=== PATIENT | male | born 1940 | race Native Hawaiian/Other Pacific Islander ===

== ENCOUNTER 2017-11-25 14:14 | Inpatient (IN) | payer MEDICARE, BC ==
[2017-11-25 14:31] VITALS: BMI 26.6
--- NOTE | 2017-11-25 15:00 | C.PDOC ---
History Of Present Illness 77 year old male, whose PMHx includes CABG (two vessels) is brought to the ED by ambulance for evaluation of shortness of breath which has been ongoing for around 2 months. Patient reports shortness of breath with exertional activities such as walking, and states symptoms are relieved when he is resting or laying down. Patient denies fever, chills, cough, and abdominal pain. Patient states he quit smoking around 20 years ago. Time Seen by Provider: 11/25/17 14:38 Chief Complaint (Nursing): Shortness Of Breath History Per: Patient History/Exam Limitations: no limitations Onset/Duration Of Symptoms: Other (2 months ) Initiating Event: Other (exertion ) Quality: denies: "Pain" Exacerbating Factor(s): Exertion. denies: Coughing Current Respiratory Medications: See Home Med List Associated Symptoms: denies: Fever, Chills, Bloody Cough, Productive Cough Additional History Per: Patient Past Medical History Reviewed: Historical Data, Nursing Documentation, Vital Signs Vital Signs: Last Vital Signs Temp Pulse 83 11/25/17 14:33 Resp 16 11/25/17 14:33 BP 120/53 L 11/25/17 14:33 Pulse Ox 97 11/25/17 15:07 - Medical History PMH: Anemia, Atrial Fibrillation, CAD (s/p stents , early , & 03/2016) , CHF, COPD, HTN, Chronic Kidney Disease Denies: HIV Surgical History: CABG, Coronary Stent (s/p stents , early , & 03/2016 ), Pacemaker - [facility] (04/17/17) EXCISION OF TOE NAIL, EXTERNAL APPROACH (04/17/17) EXERCISE TREATMENT OF MUSCULOSK WHOLE USING ASSIST EQUIPMENT (04/17/17) HOME MANAGEMENT TREATMENT USING ASSIST EQUIPMENT (04/17/17) Family History: States: Unknown Family Hx - Social History Hx Alcohol Use: Yes (In the 1970s) Hx Substance Use: No - Immunization History Hx Tetanus Toxoid Vaccination: No Hx Influenza Vaccination: Yes Hx Pneumococcal Vaccination: Yes Review Of Systems Constitutional: Negative for: Fever, Chills Respiratory: Positive for: SOB with Excertion. Negative for: Cough Gastrointestinal: Negative for: Abdominal Pain Physical Exam - Physical Exam Appears: Non-toxic, No Acute Distress Skin: Normal Color, Warm, Dry Head: Atraumatic, Normacephalic Eye(s): bilateral: Normal Inspection Oral Mucosa: Moist Neck: Supple Chest: Symmetrical, No Deformity, No Tenderness Cardiovascular: Rhythm Regular, No Murmur Respiratory: Rales (at right base ), No Rhonchi, No Wheezing Gastrointestinal/Abdominal: Soft, No Tenderness, No Guarding, No Rebound Extremity: Normal ROM, Capillary Refill (less than 2 seconds ), Other (+1 pitting edema to bilateral lower extremities ) Pulses: Left Dorsalis Pedis: Normal, Right Dorsalis Pedis: Normal Neurological/Psych: Oriented x3, Normal Speech, Normal Cognition ED Course And Treatment - Laboratory Results Result Diagrams: 11/25/17 15:29 11/25/17 15:29 ECG: Interpreted By Me, Viewed By Me ECG Rhythm: AV Paced Rate From EC O2 Sat by Pulse Oximetry: 97 Medical Decision Making Medical Decision Making: Assessment: shortness of breath with exertion Plan: * bloodwork * urinalysis * CXR * EKG * reassess and disposition Progress: Bloodwork, urinalysis, CXR and EKG ordered and reviewed. Disposition Discussed With : Angelia Lau Doctor Will See Patient In The: Hospital Counseled Patient/Family Regarding: Studies Performed, Diagnosis - Disposition Disposition: HOSPITALIZED Disposition Time: 16:30 Condition: FAIR Forms: [facility] (Croatian) - Clinical Impression Clinical Impression: Chronic congestive heart failure, SOB (shortness of breath) - Scribe Statement The provider has reviewed the documentation as recorded by the Scribe (Kathy Hernandez) Provider Attestation: All medical record entries made by the Scribe were at my direction and personally dictated by me. I have reviewed the chart and agree that the record accurately reflects my personal performance of the history, physical exam, medical decision making, and the department course for this patient. I have also personally directed, reviewed, and agree with the discharge instructions and disposition.
[2017-11-25 15:33] LABS: MEAN CORPUSCULAR HEMOGLOBIN 28.5 pg (27.0-31.0); MONO # 0.6 K/uL (0.0-0.8); NEUT # 3.5 K/uL (1.8-7.0); RED CELL DISTRIBUTION WIDTH 19.5 % (11.5-14.5)
[2017-11-25 15:37] LABS: BASO % 0.9 % (0.0-2.0); EOS # 0.2 K/uL (0.0-0.7); EOS % 2.9 % (0.0-4.0); HEMOGLOBIN 10.7 g/dL (12.0-18.0); LYMPH # 1.1 K/uL (1.0-4.3); MEAN CELL VOLUME 85.9 fL (80.0-94.0); MEAN CORPUSCULAR HGB CONC 33.2 g/dL (33.0-37.0); MEAN PLATELET VOLUME 8.3 fL (7.2-11.7); MONO % 10.7 % (0.0-10.0); NEUT % 65.5 % (50.0-75.0); NRBC % 0.1 % (0.0-2.0); RBC 3.75 Mil/uL (4.40-5.90); WHITE BLOOD COUNT 5.4 K/uL (4.8-10.8)
[2017-11-25 15:51] LABS: ALB/GLOB RATIO 1.2 (1.0-2.1); ALBUMIN 4.1 g/dL (3.5-5.0); CALCIUM 9.6 mg/dl (8.6-10.4)
[2017-11-25 16:03] LABS: TROPONIN I 0.103 ng/mL (0.00-0.120)
--- NOTE | 2017-11-25 16:14 | RAD ---
Date of service: 11/25/2017 PROCEDURE: CHEST RADIOGRAPH, 1 VIEW HISTORY: SOB COMPARISON: 03/13/2011 FINDINGS: LUNGS: No consolidation. . Interval discoid atelectasis - left lateral mid lung zone. PLEURA: No pneumothorax or pleural fluid seen. CARDIOVASCULAR: Cardiomegaly increased since prior study. Interval increased pulmonary venous congestion all midline sternotomy and coronary artery bypass surgery. Atherosclerotic vascular calcifications present. . Duallead pacemaker in place both change. OSSEOUS STRUCTURES: Interval midline sternotomy. Thoracic spondylosis. Bilateral shoulder arthrosis VISUALIZED UPPER ABDOMEN: Normal. OTHER FINDINGS: None. IMPRESSION: Interval increased cardiomegaly. Interval increased pulmonary venous congestion. Interval left lateral discoid atelectasis Interval cardiac postsurgical changes
[2017-11-25 16:35] LABS: INR 1.3; PROTHROMBIN TIME 14.1 SECONDS (9.7-12.2)
--- NOTE | 2017-11-25 19:07 | CP.PCM.HP ---
History of Present Illness - History of Present Illness History of Present Illness: Admitted this 77 years old male because of increasing shortness of breath. He is a known case of CAD had a bypass surgery in March 2017, went into congestive heart failure and atrial fibrillation for which he underwent ablation. Patient had been on HD for 6 years and Had NIDDM for about 20 years.He has HD 3x a week and just had dialysis yesterday. patient also claims he fell and hit his back for which he has a lot of pain but no evidence of fracture. Present on Admission - Present on Admission Any Indicators Present on Admission: No Review of Systems - Constitutional Constitutional: Weakness - Cardiovascular Cardiovascular: As Per HPI, Dyspnea, Dyspnea on Exertion - Respiratory Respiratory: Dyspnea, Dyspnea on Exertion - Musculoskeletal Musculoskeletal: Back Pain Past Patient History - Past Medical History & Family History Past Medical History?: Yes - Past Social History Smoking Status: Never Smoked Chewing Tobacco Use: No Cigar Use: No Drugs: Denies - CARDIAC Hx Cardiac Disorders: Yes Hx Atrial Fibrillation: Yes Hx Congestive Heart Failure: Yes Hx Hypertension: Yes Hx Pacemaker: Yes - PULMONARY Hx Respiratory Disorders: Yes Hx Chronic Obstructive Pulmonary Disease (COPD): Yes - NEUROLOGICAL Hx Neurological Disorder: No - HEENT Hx HEENT Problems: No - RENAL Hx Chronic Kidney Disease: Yes Hx Dialysis: Yes Date of Last Dialysis Treatment: 11/25/17 Hx Renal Failure: Yes - ENDOCRINE/METABOLIC Hx Endocrine Disorders: Yes Hx Diabetes Mellitus Type 1: Yes (??) - HEMATOLOGICAL/ONCOLOGICAL Hx Anemia: Yes Hx Human Immunodeficiency Virus (HIV): No - INTEGUMENTARY Hx Dermatological Problems: No - MUSCULOSKELETAL/RHEUMATOLOGICAL Hx Musculoskeletal Disorders: No - GENITOURINARY/GYNECOLOGICAL Hx Genitourinary Disorders: No - PSYCHIATRIC Hx Psychophysiologic Disorder: No Hx Substance Use: No - SURGICAL HISTORY Hx Cardiac Catheterization: Yes Hx Coronary Artery Bypass Graft: Yes Hx Coronary Stent: Yes (s/p stents 's, early 1999', & 03/2016) Hx Open Heart Surgery: Yes - ANESTHESIA Hx Anesthesia: Yes Hx Anesthesia Reactions: No Meds Allergies/Adverse Reactions: Allergies Allergy/AdvReac Type Severity Reaction Status Date / Time aspirin Allergy Intermediate .HIVES Verified 11/25/17 14:29 Physical Exam - Constitutional Appears: Well, Chronically Ill - Head Exam Head Exam: ATRAUMATIC, NORMAL INSPECTION, NORMOCEPHALIC - Eye Exam Eye Exam: Normal appearance Pupil Exam: PERRL - ENT Exam ENT Exam: Mucous Membranes Moist, Normal Exam - Neck Exam Neck exam: Positive for: Full Rom, Normal Inspection - Respiratory Exam Respiratory Exam: Rales, Rhonchi - Cardiovascular Exam Cardiovascular Exam: REGULAR RHYTHM, +S1, +S2 - GI/Abdominal Exam GI & Abdominal Exam: Soft - Rectal Exam Rectal Exam: Deferred - Extremities Exam Extremities exam: Positive for: full ROM, normal inspection - Back Exam Back exam: tenderness - Neurological Exam Neurological exam: Alert, Oriented x3, Reflexes Normal - Psychiatric Exam Psychiatric exam: Normal Affect, Normal Mood - Skin Skin Exam: Dry, Intact, Warm Results - Vital Signs Recent Vital Signs: Last Vital Signs Temp 98.5 F 11/25/17 17:17 Pulse 80 11/25/17 17:17 Resp 17 11/25/17 17:17 BP 107/50 L 11/25/17 17:17 Pulse Ox 99 11/25/17 17:17 - Labs Result Diagrams: 11/25/17 15:29 11/25/17 15:29 Labs: Laboratory Results - last 24 hr 11/25/17 11/25/17 11/25/17 15:29 15:29 16:20 WBC 5.4 RBC 3.75 L Hgb 10.7 L Hct 32.2 L MCV 85.9 MCH 28.5 MCHC 33.2 RDW 19.5 H Plt Count 79 L MPV 8.3 Neut % (Auto) 65.5 Lymph % (Auto) 20.0 [place] % (Auto) 10.7 H Eos % (Auto) 2.9 Baso % (Auto) 0.9 Neut # (Auto) 3.5 Lymph # (Auto) 1.1 [place] # (Auto) 0.6 Eos # (Auto) 0.2 Baso # (Auto) 0.0 Differential Comment PT 14.1 H INR 1.3 APTT 39 H D-Dimer, Quantitative 225 Sodium 139 Potassium 6.1 H Chloride 95 L Carbon Dioxide 25 Anion Gap 25 H BUN 51 H Creatinine 6.7 H Est GFR ( Amer) 10 Est GFR (Non-Af Amer) 8 Random Glucose 170 H Calcium 9.6 Total Bilirubin 1.1 AST 46 ALT 42 Alkaline Phosphatase 96 Troponin I 0.1030 NT-Pro-B Natriuret Pep 09407 H Total Protein 7.5 Albumin 4.1 Globulin 3.3 Albumin/Globulin Ratio 1.2 Assessment & Plan (1) Anemia in ESRD (end-stage renal disease) Status: Chronic (2) Hypertensive CKD, ESRD on dialysis Status: Chronic (3) IDDM (insulin dependent diabetes mellitus) Status: Chronic (4) Chronic congestive heart failure Status: Chronic (5) SOB (shortness of breath) Status: Chronic (6) S/P CABG (coronary artery bypass graft) Status: Chronic - Assessment and Plan (Free Text) Assessment: Assessment: ESRD. CAD HTN. Anemia sec. to REnal failure IDDM back pains sec to a fall. Plan: Plan : For HD tonight. Continue al medications. Novolog coverage. - Date & Time Date: 11/25/17 Time: 19:15
--- NOTE | 2017-11-25 20:38 | CARD ---
APPROVED REPORT Date of service: 11/25/2017 EKG Measurement Heart [id number] <Conclusion> AV dual-paced rhythm with prolonged AV conduction Abnormal ECG
[2017-11-25] MEDS: (Novolog) Insulin Aspart, Recombinant 100 u/ml 10 ml vial SC SCH (21:02)
--- NOTE | 2017-11-26 08:10 | RAD ---
Date of service: 11/25/2017 PROCEDURE: Radiographs of the Lumbar Spine. HISTORY: patient fell COMPARISON: No prior. FINDINGS: BONES: Mildly straightened curvature. No fracture identified. There is a borderline retrolisthesis at L4-5 with L4 borderline posterior L5. Prominent osteophytes limit the evaluation somewhat. CT or MRI may be utilized for greater characterization. Gross multilevel lumbar spondylosis identified. DISC SPACES: Marked disc height loss seen at L3-4 indicative of degenerative disease with additional degenerative disc disease otherwise appreciated on a diffuse basis, primarily endplate sclerosis and osteophyte development. OTHER FINDINGS: Extensive aortic atherosclerotic calcification is identified incidentally. IMPRESSION: Borderline spondylolisthesis L4-5. Advanced multilevel degenerative disease, seen worst at L3-4.
[2017-11-26] MEDS: (Novolog) Insulin Aspart, Recombinant 100 u/ml 10 ml vial SC SCH ×2 (08:27→21:48)
[2017-11-26] MEDS: Pantoprazole 40 mg EC Tab PO SCH (10:14)
--- NOTE | 2017-11-26 11:08 | CP.PCM.PN ---
Subjective - Date & Time of Evaluation Date of Evaluation: 11/26/17 Time of Evaluation: 11:04 - Subjective Subjective: Patient had HD late last night. Started on PT, but has to b discontinued because the patient desaturated to 70%. is very dypsneic Lungs rales sre very minimal. Much lesser than last night. Lab results showed a K of 6.1 last night. Will repeat stat. Echo ordered. Objective - Vital Signs/Intake and Output Vital Signs (last 24 hours): Temp Pulse Resp BP Pulse Ox 97.8 F 81 20 118/69 97 11/26/17 03:20 11/26/17 04:49 11/26/17 03:20 11/26/17 10:16 11/26/17 08:01 Intake and Output: 11/26/17 11/26/17 06:59 18:59 Intake Total 120 Balance 120 - Medications Medications: Current Medications Amlodipine Besylate (Norvasc) 10 mg PO DAILY [facility] Last Admin: 11/26/17 10:19 Dose: 10 mg Apixaban (Eliquis) 5 mg PO BID [facility] Last Admin: 11/26/17 10:15 Dose: 5 mg Calcium Acetate (Phoslo) 667 mg PO BID [facility] Last Admin: 11/26/17 10:14 Dose: 667 mg Clopidogrel Bisulfate (Plavix) 75 mg PO DAILY [facility] Last Admin: 11/26/17 10:19 Dose: 75 mg Docusate Sodium (Colace) 100 mg PO BID [facility] Last Admin: 11/26/17 10:14 Dose: 100 mg Home Med (Atorvastatin [Lipitor]) 40 mg PO HS [facility] Insulin Aspart (Novolog) 0 unit SC ACS [facility] PRN Reason: Protocol Last Admin: 11/26/17 08:27 Dose: 2 u Metoprolol Tartrate (Lopressor) 25 mg PO BID [facility] Last Admin: 11/26/17 10:16 Dose: 25 mg Mirtazapine (Remeron) 7.5 mg PO HS [facility] Oxandrolone (Oxandrin) 5 mg PO BID [facility] Last Admin: 11/25/17 19:36 Dose: Not Given Pantoprazole Sodium (Protonix Ec Tab) 40 mg PO DAILY [facility] Last Admin: 11/26/17 10:14 Dose: 40 mg Sevelamer Carbonate (Renvela) 2,400 mg PO TID [facility] Last Admin: 11/26/17 10:19 Dose: 2,400 mg - Labs Labs: 11/25/17 15:29 11/25/17 15:29 PT 14.1 SECONDS (9.7-12.2) H 11/25/17 16:20 INR 1.3 11/25/17 16:20 APTT 39 SECONDS (21-34) H 11/25/17 16:20 - Constitutional Appears: In Acute Distress, Chronically Ill - Head Exam Head Exam: ATRAUMATIC, NORMAL INSPECTION, NORMOCEPHALIC - Eye Exam Eye Exam: Normal appearance Pupil Exam: PERRL - ENT Exam ENT Exam: Mucous Membranes Moist, Normal Exam - Neck Exam Neck Exam: Full ROM - Respiratory Exam Respiratory Exam: Respiratory Distress Additional comments: Lesser rales. - Cardiovascular Exam Cardiovascular Exam: REGULAR RHYTHM, +S1, +S2 - GI/Abdominal Exam GI & Abdominal Exam: Soft, Normal Bowel Sounds - Rectal Exam Rectal Exam: Deferred - Back Exam Back Exam: NORMAL INSPECTION - Neurological Exam Neurological Exam: Alert, Awake, Oriented x3 - Psychiatric Exam Psychiatric exam: Depressed, Normal Affect - Skin Skin Exam: Intact Assessment and Plan (1) Anemia in ESRD (end-stage renal disease) Status: Chronic (2) Hypertensive CKD, ESRD on dialysis Status: Chronic (3) IDDM (insulin dependent diabetes mellitus) Status: Chronic (4) Chronic congestive heart failure Status: Chronic (5) SOB (shortness of breath) Status: Chronic (6) S/P CABG (coronary artery bypass graft) Status: Chronic - Assessment and Plan (Free Text) Assessment: Assessment: CAD, CHF S/P Cabg ESRD. IDDM. HTN. Plan: Plan: Continue HD. Continue Eliquis, Plavix, , Novolog coverage, Renvela, Metoprolol. ECHO Cardiology consult.
[2017-11-26 14:32] LABS: ALB/GLOB RATIO 1.3 (1.0-2.1); ALBUMIN 4.2 g/dL (3.5-5.0); CALCIUM 10.1 mg/dl (8.6-10.4)
[2017-11-26] MEDS ORDERED: Albumin Human 25% (12.5 gm/50 ml) IV ONE (15:49)
[2017-11-26] MEDS: Albumin Human 25% (12.5 gm/50 ml) IV ONE ×2 (16:48→19:50)
--- NOTE | 2017-11-26 18:45 | CP.PCM.CON ---
History of Present Illness - History of Present Illness History of Present Illness: pt is seen and examinedd, full consult is dictated, #[id number] s/p hd yesterday and today, had a uf 4500 ml Past Patient History - Past Medical History & Family History Past Medical History?: Yes - Past Social History Smoking Status: Never Smoked Chewing Tobacco Use: No Cigar Use: No Drugs: Denies - CARDIAC Hx Cardiac Disorders: Yes Hx Congestive Heart Failure: Yes Hx Hypertension: Yes - PULMONARY Hx Chronic Obstructive Pulmonary Disease (COPD): Yes - NEUROLOGICAL Hx Neurological Disorder: No - HEENT Hx HEENT Problems: No - RENAL Hx Chronic Kidney Disease: Yes - ENDOCRINE/METABOLIC Hx Diabetes Mellitus Type 2: Yes - HEMATOLOGICAL/ONCOLOGICAL Hx Anemia: Yes Hx Human Immunodeficiency Virus (HIV): No - INTEGUMENTARY Hx Dermatological Problems: No - MUSCULOSKELETAL/RHEUMATOLOGICAL Hx Falls: Yes - GENITOURINARY/GYNECOLOGICAL Hx Genitourinary Disorders: No - PSYCHIATRIC Hx Substance Use: No - SURGICAL HISTORY Hx Coronary Artery Bypass Graft: Yes Hx Coronary Stent: Yes (s/p stents , early , & 03/2016) - ANESTHESIA Hx Anesthesia: Yes Hx Anesthesia Reactions: No Meds Allergies/Adverse Reactions: Allergies Allergy/AdvReac Type Severity Reaction Status Date / Time aspirin Allergy Intermediate .HIVES Verified 11/25/17 14:29 - Medications Medications: Current Medications Amlodipine Besylate (Norvasc) 10 mg PO DAILY [facility] Last Admin: 11/26/17 10:19 Dose: 10 mg Apixaban (Eliquis) 5 mg PO BID [facility] Last Admin: 11/26/17 10:15 Dose: 5 mg Calcium Acetate (Phoslo) 667 mg PO BID [facility] Last Admin: 11/26/17 10:14 Dose: 667 mg Clopidogrel Bisulfate (Plavix) 75 mg PO DAILY [facility] Last Admin: 11/26/17 10:19 Dose: 75 mg Docusate Sodium (Colace) 100 mg PO BID [facility] Last Admin: 11/26/17 10:14 Dose: 100 mg Dronabinol (Marinol) 2.5 mg PO BID [facility] Insulin Aspart (Novolog) 0 unit SC [facility] PRN Reason: Protocol Last Admin: 11/26/17 08:27 Dose: 2 u Metoprolol Tartrate (Lopressor) 25 mg PO BID [facility] Last Admin: 11/26/17 10:16 Dose: 25 mg Mirtazapine (Remeron) 7.5 mg PO HS [facility] Pantoprazole Sodium (Protonix Ec Tab) 40 mg PO DAILY [facility] Last Admin: 11/26/17 10:14 Dose: 40 mg Rosuvastatin Calcium (Crestor) 10 mg PO HS [facility] Sevelamer Carbonate (Renvela) 2,400 mg PO TID [facility] Last Admin: 11/26/17 10:19 Dose: 2,400 mg Results - Vital Signs Recent Vital Signs: Last Vital Signs Temp 979 F H 11/26/17 15:00 Pulse 66 11/26/17 18:00 Resp 16 11/26/17 17:30 BP 116/60 11/26/17 17:30 Pulse Ox 98 11/26/17 18:23 - Labs Result Diagrams: 11/25/17 15:29 11/26/17 13:57 Labs: Laboratory Results - last 24 hr 11/26/17 11/26/17 11/26/17 00:35 06:05 11:12 Sodium Potassium Chloride Carbon Dioxide Anion Gap BUN Creatinine Est GFR ( Amer) Est GFR (Non-Af Amer) POC Glucose (mg/dL) 133 H 168 H 152 H Random Glucose Calcium Total Bilirubin AST ALT Alkaline Phosphatase Total Protein Albumin Globulin Albumin/Globulin Ratio 11/26/17 11/26/17 13:57 16:42 Sodium 140 Potassium 5.1 Chloride 94 L Carbon Dioxide 31 H Anion Gap 20 BUN 37 H Creatinine 5.7 H Est GFR ( Amer) 12 Est GFR (Non-Af Amer) 10 POC Glucose (mg/dL) 210 H Random Glucose 122 H Calcium 10.1 Total Bilirubin 1.0 AST 34 ALT 43 Alkaline Phosphatase 111 Total Protein 7.6 Albumin 4.2 Globulin 3.3 Albumin/Globulin Ratio 1.3
--- NOTE | 2017-11-26 20:09 | CARD ---
APPROVED REPORT Date of service: 11/26/2017 EXAM: Two-dimensional and M-mode echocardiogram with Doppler and color Doppler. Other Information Quality : AverageRhythm : NSR INDICATION Dyspnea Congestive Heart Failure Surgery/Intervention CABG: RISK FACTORS Hypertension Diabetes M-Mode DIMENSIONS RVDd2.10 (2.1-3.2cm)Left Atrium (MM)5.13 (2.5-4.0cm) IVSd1.36 (0.7-1.1cm)Aortic Root3.47 (2.2-3.7cm) LVDd5.68 (4.0-5.6cm)Aortic Cusp Exc.2.07 (1.5-2.0cm) PWd1.40 (0.7-1.1cm)FS (%) 21 % LVDs4.46 (2.0-3.8cm)LVEF (%)43 (>50%) Aortic Valve AoV Peak Vywddows333.8cm/Sriram Peak GR.5mmHg Mitral Valve MV E Qtgnshmd323.1cm/sMV A Rtioedcr95.5cm/sE/A ratio1.9 TDI E/Lateral E'0.0E/Medial E'0.0 Tricuspid Valve TR Peak [id number]/sTR Peak Gr.[id number] LEFT VENTRICLE The Left Ventricle is mildly dilated. There is mild to moderate concentric left ventricular hypertrophy. Left ventricle systolic function is moderately to severely impaired. The Ejection Fraction is 30-35%. There is akinesis in the mid-anterolateral wall. Transmitral Doppler flow pattern is Grade II-pseudonormal filling dynamics. There is no ventricular septal defect visualized. RIGHT VENTRICLE The right ventricle is normal size. The right ventricular systolic function is normal. There is a pacemaker lead in the right ventricle. ATRIA The left atrium is mildly dilated. The right atrium size is normal. AORTIC VALVE The aortic valve is mildly sclerotic. The aortic valve is tri-cuspid. There is trace aortic regurgitation. There is no aortic valvular stenosis. MITRAL VALVE Mitral annular calcification is mild. There is no evidence of mitral valve prolapse. Mitral regurgitation is mild to moderate. TRICUSPID VALVE The tricuspid valve is normal in structure. There is moderate to severe tricuspid regurgitation. Right ventricular systolic pressure is estimated at 30-40 mmHg. There is mild pulmonary hypertension. PULMONIC VALVE The pulmonic valve is not well visualized. There is trace pulmonic valvular regurgitation. GREAT VESSELS The aortic root is normal in size. The ascending aorta is normal in size. The IVC is normal in size and collapses >50% with inspiration. <Conclusion> Left ventricle systolic function is moderately to severely impaired. The Ejection Fraction is 30-35%. There is akinesis in the mid-anterolateral wall. Transmitral Doppler flow pattern is Grade II-pseudonormal filling dynamics. Mitral regurgitation is mild to moderate. There is mild pulmonary hypertension.
--- NOTE | 2017-11-27 01:03 | CP.PCM.CON ---
History of Present Illness - History of Present Illness History of Present Illness: 77 yo male complaining of increasing SOB for the past few weeks. Patient is known to have CAD, s/ CABG 8 months ago, s/p ablation for an atrial fibrillation , a Hx of IDDM, an ischemic cardiomyopathy, an atrial fibrillation, a s/p permanent pacemaker, a COPD, an ESRD on HD. He was found to be in an acue CHF, requirng more HD sessions. Review of Systems - Constitutional Constitutional: Weakness - Cardiovascular Cardiovascular: Dyspnea, Dyspnea on Exertion - Respiratory Respiratory: Dyspnea, Dyspnea on Exertion Past Patient History - Past Medical History & Family History Past Medical History?: Yes - Past Social History Smoking Status: Former Smoker Chewing Tobacco Use: No Cigar Use: No Drugs: Denies Home Situation {Lives}: With Family Domestic Violence: Negative - CARDIAC Hx Cardiac Disorders: Yes Hx Congestive Heart Failure: Yes Hx Hypertension: Yes - PULMONARY Hx Chronic Obstructive Pulmonary Disease (COPD): Yes - NEUROLOGICAL Hx Neurological Disorder: No - HEENT Hx HEENT Problems: No - RENAL Hx Chronic Kidney Disease: Yes Hx Dialysis: Yes - ENDOCRINE/METABOLIC Hx Diabetes Mellitus Type 2: Yes - HEMATOLOGICAL/ONCOLOGICAL Hx Anemia: Yes Hx Human Immunodeficiency Virus (HIV): No - INTEGUMENTARY Hx Dermatological Problems: No - MUSCULOSKELETAL/RHEUMATOLOGICAL Hx Falls: Yes - GENITOURINARY/GYNECOLOGICAL Hx Genitourinary Disorders: No - PSYCHIATRIC Hx Anxiety: Yes Hx Substance Use: No - SURGICAL HISTORY Hx Surgeries: Yes Hx Angioplasty: Yes Hx Arteriovenous Shunt: Yes Hx Cardiac Catheterization: Yes Hx Coronary Artery Bypass Graft: Yes Hx Coronary Stent: Yes (s/p stents ', early 1999', & 03/2016) - ANESTHESIA Hx Anesthesia: Yes Hx Anesthesia Reactions: No Meds Allergies/Adverse Reactions: Allergies Allergy/AdvReac Type Severity Reaction Status Date / Time aspirin Allergy Intermediate .HIVES Verified 11/25/17 14:29 - Medications Medications: Current Medications Amlodipine Besylate (Norvasc) 10 mg PO DAILY [facility] Last Admin: 11/26/17 10:19 Dose: 10 mg Apixaban (Eliquis) 5 mg PO BID [facility] Last Admin: 11/26/17 19:51 Dose: 5 mg Calcium Acetate (Phoslo) 667 mg PO BID [facility] Last Admin: 11/26/17 19:52 Dose: 667 mg Clopidogrel Bisulfate (Plavix) 75 mg PO DAILY [facility] Last Admin: 11/26/17 10:19 Dose: 75 mg Docusate Sodium (Colace) 100 mg PO BID [facility] Last Admin: 11/26/17 19:50 Dose: 100 mg Dronabinol (Marinol) 2.5 mg PO BID [facility] Last Admin: 11/26/17 19:51 Dose: 2.5 mg Insulin Aspart (Novolog) 0 unit SC [facility] PRN Reason: Protocol Last Admin: 11/26/17 21:48 Dose: Not Given Metoprolol Tartrate (Lopressor) 25 mg PO BID [facility] Last Admin: 11/26/17 18:00 Dose: 25 mg Mirtazapine (Remeron) 7.5 mg PO [facility] Last Admin: 11/26/17 21:47 Dose: 7.5 mg Pantoprazole Sodium (Protonix Ec Tab) 40 mg PO DAILY [facility] Last Admin: 11/26/17 10:14 Dose: 40 mg Rosuvastatin Calcium (Crestor) 10 mg PO [facility] Last Admin: 11/26/17 21:47 Dose: 10 mg Sevelamer Carbonate (Renvela) 2,400 mg PO TID [facility] Last Admin: 11/26/17 19:52 Dose: 2,400 mg Physical Exam - Constitutional Appears: No Acute Distress, Chronically Ill - Head Exam Head Exam: NORMAL INSPECTION - Eye Exam Eye Exam: Normal appearance - ENT Exam ENT Exam: Normal Exam - Neck Exam Neck exam: Positive for: Normal Inspection - Respiratory Exam Respiratory Exam: Rales - Cardiovascular Exam Cardiovascular Exam: REGULAR RHYTHM, Systolic Murmur - Rectal Exam Rectal Exam: Deferred - Extremities Exam Extremities exam: Positive for: normal inspection - Back Exam Back exam: NORMAL INSPECTION - Neurological Exam Neurological exam: Alert, Oriented x3 - Psychiatric Exam Psychiatric exam: Anxious - Skin Skin Exam: Dry, Intact, Normal Color Results - Vital Signs Recent Vital Signs: Last Vital Signs Temp 98.2 F 11/26/17 19:00 Pulse 80 11/26/17 19:00 Resp 20 11/26/17 19:00 BP 120/65 11/26/17 19:00 Pulse Ox 97 11/26/17 19:00 - Labs Result Diagrams: 11/25/17 15:29 11/26/17 13:57 Labs: Laboratory Results - last 24 hr 11/26/17 11/26/17 11/26/17 06:05 11:12 13:57 Sodium 140 Potassium 5.1 Chloride 94 L Carbon Dioxide 31 H Anion Gap 20 BUN 37 H Creatinine 5.7 H Est GFR ( Amer) 12 Est GFR (Non-Af Amer) 10 POC Glucose (mg/dL) 168 H 152 H Random Glucose 122 H Calcium 10.1 Total Bilirubin 1.0 AST 34 ALT 43 Alkaline Phosphatase 111 Total Protein 7.6 Albumin 4.2 Globulin 3.3 Albumin/Globulin Ratio 1.3 11/26/17 11/26/17 16:42 21:16 Sodium Potassium Chloride Carbon Dioxide Anion Gap BUN Creatinine Est GFR ( Amer) Est GFR (Non-Af Amer) POC Glucose (mg/dL) 210 H 192 H Random Glucose Calcium Total Bilirubin AST ALT Alkaline Phosphatase Total Protein Albumin Globulin Albumin/Globulin Ratio Assessment & Plan (1) Acute on chronic systolic (congestive) heart failure Status: Acute (2) ESRD (end stage renal disease) on dialysis Status: Chronic (3) Atrial fibrillation Status: Chronic
[2017-11-27] MEDS: (Novolog) Insulin Aspart, Recombinant 100 u/ml 10 ml vial SC SCH ×2 (07:57→21:17)
--- NOTE | 2017-11-27 08:49 | CON ---
DATE: 11/26/2017 The patient is located in 651, bed A. Requested by Dr. Angelia Lau. REASON FOR CONSULTATION: End-stage renal disease, shortness of breath, CHF, and hyperkalemia for emergency hemodialysis last night. HISTORY OF PRESENT ILLNESS: The patient is a 77-year-old elderly very pleasant [place] male with a past medical history significant for longstanding hypertension; diabetes; hyperlipidemia; coronary artery disease; status post CABG; end-stage renal disease, on hemodialysis three times a week, underwent CABG about six months ago, who was brought to the emergency room with sudden onset of shortness of breath. He was sleeping and he woke up with sudden onset of shortness of breath and denies any chest pain. Denies any nausea, vomiting, or diarrhea. Denies any fever. Denies any abdominal pain. The patient has complained of mild cough and also complains of edema of the legs. PAST MEDICAL HISTORY: Significant for longstanding hypertension, diabetes, hyperlipidemia, end-stage renal disease, secondary hyperparathyroidism, and also coronary artery disease. PAST SURGICAL HISTORY: Status post CABG about six months ago and left upper extremity AV fistula and also repair of the aneurysm. ALLERGIES: ALLERGIC TO ASPIRIN. SOCIAL HISTORY: The patient was an ex-smoker, quit about 20 years ago. No alcohol. No drug abuse. PERSONAL HISTORY: He is and he has three daughters. FAMILY HISTORY: Not significant. CURRENT MEDICATIONS: Include as follows: Colace 100 mg p.o. b.i.d., Crestor 10 mg at bedtime, Eliquis 5 mg p.o. b.i.d., metoprolol 25 mg p.o. b.i.d., and Marinol 2.5 mg p.o. b.i.d., Norvasc 10 mg p.o. daily, PhosLo 667 mg p.o. b.i.d., Plavix 75 mg daily, Protonix 40 mg p.o. daily, Remeron 7.5 mg p.o. at bedtime, Renvela 2.4 gm p.o. t.i.d. REVIEW OF SYSTEMS: Significant for shortness of breath and cough. PHYSICAL EXAMINATION: VITAL SIGNS: As follows: Blood pressure 120/65, pulse 80, respirations 20, temperature 98.2, sat 97%, height 5 feet 5 inches, and weight is 178 pounds. GENERAL: The patient is a 77-year-old elderly [place] male, moderately-built, moderately-nourished, not in any acute distress at this time. HEENT: Pupils normally reactive to light and accommodation. Conjunctivae pink. Sclerae anicteric. Tongue is moistened. Trachea is midline. LUNGS: Symmetric on both sides. Bilateral breath sounds present. Bilateral basal crackles present, right more than the left. The patient also has right-sided pacemaker present. CVS: [place] at the fifth intercostal space, midclavicular line. S1, S2 audible. No murmur or gallop. The patient also has a midsternal scar present from the previous CABG. ABDOMEN: Normal in appearance. Soft tympanic. No guarding. No rigidity. No hepatosplenomegaly. 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 Nonfocal neuro examination. Cranial nerves II through XII grossly intact. Sensory and motor system is within normal limits. EXTREMITIES: No cyanosis. No clubbing. The patient has 1+ edema in both lower extremities. LABORATORY DATA: Include as follows as of 11/25/2017; WBC 5.4, hemoglobin 10.7, hematocrit is 32.2, and platelets 79. PT is 14.1, PTT 39, INR 1.3. D-dimer 225. Sodium 139, potassium 6.1, chloride 95, CO2 of 25, BUN 51, creatinine 6.7, glucose 170, calcium 9.6. Total bili 1.1, AST 46, ALT 42, alkaline phosphatase 96. Troponin 0.10. Pro-BNP 98,600. Total protein 7.5, albumin 4.1. His Accu-Checks 133, 168, and 152. Other laboratory data as of 11/26/2017; sodium 140, potassium 5.1, chloride 94, CO2 of 31, BUN 37, creatinine 5.7, glucose 122, calcium 10.1. Total bili 0.1, AST 34, ALT 43, alkaline phosphatase 111. Total protein 7.6, albumin is 4.2. OTHER REPORTS: Chest x-ray as of 11/25/2017, interval increase in cardiomegaly, interval increase in pulmonary venous congestion, interval left atrial discoid atelectasis, interval cardiac postsurgical changes. Pacemaker in place. X-ray of the lumbosacral spine as of 11/25/2017, borderline spondylolisthesis L4-L5, advanced multilevel degenerative disease seen worse at L3-L4. ASSESSMENT: In summary, the patient is a 77-year-old elderly [place] male, very pleasant with a past medical history significant for longstanding hypertension and diabetes, ex-smoker, hyperlipidemia, end-stage renal disease, coronary artery disease, status post pacemaker placement, and status post coronary artery bypass graft about six months ago, presented to the emergency room with sudden onset of shortness of breath and fluid overload and hyperkalemia with noncompliance with the diet. 1. Congestive heart failure secondary to fluid overload. 2. Hyperkalemia secondary to end-stage renal disease, noncompliant with diet most likely. 3. Hypertension. 4. Diabetes. PLAN: The patient underwent emergency hemodialysis last night and removed about 2.5 L and also the patient underwent another dialysis today and ultrafiltration about 2 L, total about 4.5 L in last 24 hours. Restrict fluids to 1 L per day and repeat BMP in a.m. We will follow with you. Thank you for allowing me to participate in your patient's care. Continue phosphate binders and continue his antihypertensive medications. Continue Crestor, continue Eliquis, continue metoprolol and amlodipine. Hold blood pressure medicine for systolic blood pressure of less than 130. Continue PhosLo and Renvela and Remeron and GI prophylaxis, Protonix. Case discussed with Dr. Lau in rounds yesterday. Alyssia Melo MD
[2017-11-27] MEDS: Pantoprazole 40 mg EC Tab PO SCH (10:05)
--- NOTE | 2017-11-27 10:50 | CP.PCM.PN ---
Subjective - Date & Time of Evaluation Date of Evaluation: 11/27/17 Time of Evaluation: 10:47 - Subjective Subjective: Patient C/O millicent weakness with SOB. Had 2 sessions of dialysis. K is now 5.1. Echo shows an EF of 30- 35 %, with mild Pulmonary hypertension. BP is on the low side. Had HD last night. Objective - Vital Signs/Intake and Output Vital Signs (last 24 hours): Temp Pulse Resp BP Pulse Ox 98.5 F 79 20 97/52 L 99 11/27/17 07:45 11/27/17 07:45 11/27/17 07:45 11/27/17 09:57 11/27/17 07:45 Intake and Output: 11/27/17 11/27/17 06:59 18:59 Intake Total 120 Balance 120 - Medications Medications: Current Medications Amlodipine Besylate (Norvasc) 10 mg PO DAILY [facility] Last Admin: 11/27/17 09:58 Dose: Not Given Apixaban (Eliquis) 5 mg PO BID [facility] Last Admin: 11/27/17 10:06 Dose: 5 mg Calcium Acetate (Phoslo) 667 mg PO BID [facility] Last Admin: 11/27/17 10:06 Dose: 667 mg Clopidogrel Bisulfate (Plavix) 75 mg PO DAILY [facility] Last Admin: 11/27/17 10:06 Dose: 75 mg Docusate Sodium (Colace) 100 mg PO BID [facility] Last Admin: 11/27/17 10:06 Dose: 100 mg Dronabinol (Marinol) 2.5 mg PO BID [facility] Last Admin: 11/27/17 10:06 Dose: 2.5 mg Insulin Aspart (Novolog) 0 unit SC [facility] PRN Reason: Protocol Last Admin: 11/27/17 07:57 Dose: 2 u Metoprolol Tartrate (Lopressor) 25 mg PO BID [facility] Last Admin: 11/27/17 09:57 Dose: Not Given Mirtazapine (Remeron) 7.5 mg PO [facility] Last Admin: 11/26/17 21:47 Dose: 7.5 mg Pantoprazole Sodium (Protonix Ec Tab) 40 mg PO DAILY [facility] Last Admin: 11/27/17 10:05 Dose: 40 mg Rosuvastatin Calcium (Crestor) 10 mg PO [facility] Last Admin: 07/25/18 21:47 Dose: 10 mg Sevelamer Carbonate (Renvela) 2,400 mg PO TID [facility] Last Admin: 11/27/17 10:06 Dose: 2,400 mg - Labs Labs: 11/25/17 15:29 11/26/17 13:57 PT 14.1 SECONDS (9.7-12.2) H 11/25/17 16:20 INR 1.3 11/25/17 16:20 APTT 39 SECONDS (21-34) H 11/25/17 16:20 - Constitutional Appears: Chronically Ill - Head Exam Head Exam: ATRAUMATIC, NORMAL INSPECTION, NORMOCEPHALIC - Eye Exam Eye Exam: Normal appearance Pupil Exam: PERRL - ENT Exam ENT Exam: Mucous Membranes Moist - Neck Exam Neck Exam: Full ROM - Respiratory Exam Respiratory Exam: Decreased Breath Sounds, Rales - Cardiovascular Exam Cardiovascular Exam: +S1, +S2, Murmur - GI/Abdominal Exam GI & Abdominal Exam: Soft, Normal Bowel Sounds - Rectal Exam Rectal Exam: Deferred - Back Exam Back Exam: NORMAL INSPECTION, paraspinal tenderness - Neurological Exam Neurological Exam: Alert, Awake, Oriented x3 - Psychiatric Exam Psychiatric exam: Depressed - Skin Skin Exam: Dry, Intact, Warm Assessment and Plan (1) 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 CAD. S/P CABG. S/P Pacemaker insertion. Atrial Fibrillation.resolved with ablation. IDDM ESRD. HTN. Anemia secondary to ESRD> Plan: Plan: Continue HD. Oxygen. Continue medications.
--- NOTE | 2017-11-27 15:24 | CP.PCM.PN ---
Subjective - Date & Time of Evaluation Date of Evaluation: 11/27/17 Time of Evaluation: 15:23 - Subjective Subjective: pt is seen and examined, follow up consult is dictated #[id number] Objective - Vital Signs/Intake and Output Vital Signs (last 24 hours): Temp Pulse Resp BP Pulse Ox 98.5 F 80 20 97/52 L 99 11/27/17 07:45 11/27/17 07:50 11/27/17 07:45 11/27/17 09:57 11/27/17 07:45 Intake and Output: 11/27/17 11/27/17 06:59 18:59 Intake Total 120 Balance 120 - Medications Medications: Current Medications Amlodipine Besylate (Norvasc) 10 mg PO DAILY [facility] Last Admin: 11/27/17 09:58 Dose: Not Given Apixaban (Eliquis) 5 mg PO BID [facility] Last Admin: 11/27/17 10:06 Dose: 5 mg Calcium Acetate (Phoslo) 667 mg PO BID [facility] Last Admin: 11/27/17 10:06 Dose: 667 mg Clopidogrel Bisulfate (Plavix) 75 mg PO DAILY [facility] Last Admin: 11/27/17 10:06 Dose: 75 mg Docusate Sodium (Colace) 100 mg PO BID [facility] Last Admin: 11/27/17 10:06 Dose: 100 mg Dronabinol (Marinol) 2.5 mg PO BID [facility] Last Admin: 11/27/17 10:06 Dose: 2.5 mg Insulin Aspart (Novolog) 0 unit SC [facility] PRN Reason: Protocol Last Admin: 11/27/17 07:57 Dose: 2 u Metoprolol Tartrate (Lopressor) 25 mg PO BID [facility] Last Admin: 11/27/17 09:57 Dose: Not Given Mirtazapine (Remeron) 7.5 mg PO HS [facility] Last Admin: 11/26/17 21:47 Dose: 7.5 mg Pantoprazole Sodium (Protonix Ec Tab) 40 mg PO DAILY [facility] Last Admin: 11/27/17 10:05 Dose: 40 mg Rosuvastatin Calcium (Crestor) 10 mg PO HS [facility] Last Admin: 11/26/17 21:47 Dose: 10 mg Sevelamer Carbonate (Renvela) 2,400 mg PO TID [facility] Last Admin: 11/27/17 13:42 Dose: 2,400 mg - Labs Labs: 11/25/17 15:29 11/26/17 13:57 PT 14.1 SECONDS (9.7-12.2) H 11/25/17 16:20 INR 1.3 11/25/17 16:20 APTT 39 SECONDS (21-34) H 11/25/17 16:20
--- NOTE | 2017-11-27 23:33 | CP.PCM.PN ---
Subjective - Date & Time of Evaluation Date of Evaluation: 11/27/17 Time of Evaluation: 20:30 - Subjective Subjective: Patient still SOB at rest. No chest pain. For HD again in AM. Objective - Vital Signs/Intake and Output Vital Signs (last 24 hours): Temp Pulse Resp BP Pulse Ox 98.2 F 80 20 116/65 97 11/27/17 15:00 11/27/17 20:34 11/27/17 15:00 11/27/17 17:17 11/27/17 15:00 Intake and Output: 11/27/17 11/28/17 18:59 06:59 Intake Total 400 Balance 400 - Medications Medications: Current Medications Amlodipine Besylate (Norvasc) 10 mg PO DAILY [facility] Last Admin: 11/27/17 09:58 Dose: Not Given Apixaban (Eliquis) 5 mg PO BID [facility] Last Admin: 11/27/17 17:16 Dose: 5 mg Calcium Acetate (Phoslo) 667 mg PO BID [facility] Last Admin: 11/27/17 17:16 Dose: 667 mg Clopidogrel Bisulfate (Plavix) 75 mg PO DAILY [facility] Last Admin: 11/27/17 10:06 Dose: 75 mg Docusate Sodium (Colace) 100 mg PO BID [facility] Last Admin: 11/27/17 17:16 Dose: 100 mg Dronabinol (Marinol) 2.5 mg PO BID [facility] Last Admin: 11/27/17 17:16 Dose: 2.5 mg Insulin Aspart (Novolog) 0 unit SC [facility] PRN Reason: Protocol Last Admin: 11/27/17 21:17 Dose: Not Given Metoprolol Tartrate (Lopressor) 25 mg PO BID [facility] Last Admin: 11/27/17 17:17 Dose: 25 mg Mirtazapine (Remeron) 7.5 mg PO HS [facility] Last Admin: 11/27/17 21:36 Dose: 7.5 mg Pantoprazole Sodium (Protonix Ec Tab) 40 mg PO DAILY [facility] Last Admin: 11/27/17 10:05 Dose: 40 mg Rosuvastatin Calcium (Crestor) 10 mg PO HS [facility] Last Admin: 11/27/17 21:36 Dose: 10 mg Sevelamer Carbonate (Renvela) 2,400 mg PO TID [facility] Last Admin: 11/27/17 17:16 Dose: 2,400 mg - Labs Labs: 11/25/17 15:29 11/26/17 13:57 PT 14.1 SECONDS (9.7-12.2) H 11/25/17 16:20 INR 1.3 11/25/17 16:20 APTT 39 SECONDS (21-34) H 11/25/17 16:20 - Constitutional Appears: Chronically Ill - Head Exam Head Exam: NORMAL INSPECTION - Eye Exam Eye Exam: Normal appearance - ENT Exam ENT Exam: Normal Exam - Neck Exam Neck Exam: Normal Inspection - Respiratory Exam Respiratory Exam: Rales Additional comments: Rales at both bases. - Cardiovascular Exam Cardiovascular Exam: REGULAR RHYTHM, Murmur - GI/Abdominal Exam GI & Abdominal Exam: Soft, Normal Bowel Sounds - Rectal Exam Rectal Exam: Deferred - Exam Exam: NORMAL INSPECTION - Extremities Exam Extremities Exam: Normal Inspection - Back Exam Back Exam: NORMAL INSPECTION - Neurological Exam Neurological Exam: Alert, Awake, Oriented x3 - Psychiatric Exam Psychiatric exam: Anxious - Skin Skin Exam: Dry, Intact, Warm Assessment and Plan (1) Acute on chronic systolic (congestive) heart failure Assessment & Plan: To continue HD as long as patient's BP is OK. Status: Acute (2) ESRD (end stage renal disease) on dialysis Assessment & Plan: HD as per Hand Tube Bender. Status: Chronic (3) Atrial fibrillation Assessment & Plan: To continue anticoagulation. Status: Chronic
[2017-11-28] MEDS ORDERED: Albuterol-Ipratrop 3 mg / 0.5 (3 ml) UD INH STA (02:51)
[2017-11-28] MEDS: (Novolog) Insulin Aspart, Recombinant 100 u/ml 10 ml vial SC SCH ×2 (08:23→21:24)
--- NOTE | 2017-11-28 09:40 | PN ---
DATE: 11/27/2017 FOLLOWUP RENAL CONSULTATION LOCATION: The patient is located in room 537. REQUESTED BY: REASON FOR FOLLOWUP: End-stage renal disease, continuation of the hemodialysis. HISTORY OF PRESENT ILLNESS: The patient is a 77-year-old elderly, very pleasant [place] male with history of longstanding hypertension, diabetes, end-stage renal disease, hyperlipidemia, coronary artery disease, status post CABG who was admitted with chief complaints of sudden onset of shortness of breath and found to be in CHF and hyperkalemia, questionable compliance with diet. The patient was dialyzed on Friday and also Friday and ultrafiltration about 4.5 liters. The patient still complains of mild shortness of breath, not in distress, able to lie down flat. No chest pain, no palpitation, no fever, no cough. PHYSICAL EXAMINATION: VITAL SIGNS: As follows: Blood pressure 113/66, pulse 80, respirations 20, temperature 98.2, saturation 97%. Height 5 feet 5 inches and weight is 174 pounds. GENERAL: The patient is a 77-year-old elderly male, moderately built, moderately nourished, not in acute distress. HEENT: Pupils normal and reactive to light and accommodation. Conjunctivae pink. Sclerae anicteric. Tongue is moist. Trachea is midline. LUNGS: Symmetric on both sides. Bilateral breath sounds present. Bilateral basal crackles present, right more than the left. CVS: [place] at the fifth intercostal space, midclavicular line. S1, S2 audible. No murmur, no gallop. ABDOMEN: Normal in appearance, soft, tympanic. No guarding. No rigidity. No hepatosplenomegaly. 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 Nonfocal neuro examination. Cranial nerves II through XII grossly intact. Sensory and motor system is within normal limits. EXTREMITIES: No cyanosis, no clubbing. The patient has 1+ edema in both lower extremities. MEDICATIONS: His current medications include as follows. Colace 100 mg p.o. b.i.d., Crestor 10 mg at bedtime, Eliquis 5 mg p.o. b.i.d., Lopressor 25 mg p.o. b.i.d., Marinol 2.5 mg p.o. b.i.d., amlodipine 10 mg daily, NovoLog insulin, PhosLo 667 mg p.o. b.i.d., Plavix 75 mg daily, Protonix 40 mg p.o. daily, Remeron 7.5 mg p.o. at bedtime, and Renvela 2400 mg p.o. t.i.d. No new labs available for today. His Accu-Cheks 162, 184. IMPRESSION: In summary, the patient is a 77-year-old elderly [place] male with a history of longstanding hypertension, diabetes, coronary artery disease, status post coronary artery bypass graft, hyperlipidemia, end-stage renal disease who was admitted with shortness of breath and hyperkalemia and fluid overload. 1. End-stage renal disease. Continue hemodialysis three times a week Friday, Friday, and Friday. We will try to ultrafiltrate as much as patient can tolerate tomorrow and try to hold blood pressure medicines, metoprolol and Norvasc until the patient is completed dialyzed and also hold for systolic blood pressure less than 130 on non-dialysis days. 2. Congestive heart failure, improving, restrict fluids to 1 liter per day. 3. Status post hyperkalemia. 4. Coronary artery disease, status post coronary artery bypass graft, asymptomatic at this time. Continue his phosphate binders, Renvela and PhosLo. Continue low sodium, low potassium, and fluid restriction 1 liter per day. Thank you for allowing me to participate in your patient's care. Alyssia Melo MD
[2017-11-28] MEDS: Pantoprazole 40 mg EC Tab PO SCH (10:36)
--- NOTE | 2017-11-28 11:05 | CP.PCM.PN ---
Subjective - Date & Time of Evaluation Date of Evaluation: 11/28/17 Time of Evaluation: 11:02 - Subjective Subjective: Patient C/O of millicent weakness with SOB. [facility] he had 2 episodes of millicent SOB last night. Discussed with Dr. Lloyd. Claims he wants to dcrease the Metoprolol to raise the BP and imrove the EF. To continue the HD. in the hospital. Objective - Vital Signs/Intake and Output Vital Signs (last 24 hours): Temp Pulse Resp BP Pulse Ox 97.4 F L 81 18 118/59 L 95 11/28/17 08:55 11/28/17 08:55 11/28/17 08:55 11/28/17 09:55 11/28/17 08:55 Intake and Output: 11/28/17 11/28/17 06:59 18:59 Intake Total 400 Balance 400 - Medications Medications: Current Medications Amlodipine Besylate (Norvasc) 10 mg PO DAILY [facility] Last Admin: 11/28/17 10:36 Dose: Not Given Apixaban (Eliquis) 5 mg PO BID [facility] Last Admin: 11/28/17 10:36 Dose: Not Given Calcium Acetate (Phoslo) 667 mg PO BID [facility] Last Admin: 11/28/17 10:36 Dose: Not Given Clopidogrel Bisulfate (Plavix) 75 mg PO DAILY [facility] Last Admin: 11/28/17 10:36 Dose: Not Given Docusate Sodium (Colace) 100 mg PO BID [facility] Last Admin: 11/28/17 10:36 Dose: Not Given Dronabinol (Marinol) 2.5 mg PO BID [facility] Last Admin: 11/28/17 10:36 Dose: Not Given Insulin Aspart (Novolog) 0 unit [facility] PRN Reason: Protocol Last Admin: 11/28/17 08:23 Dose: 2 u Metoprolol Tartrate (Lopressor) 25 mg PO BID [facility] Last Admin: 11/28/17 10:36 Dose: Not Given Mirtazapine (Remeron) 7.5 mg PO [facility] Last Admin: 11/27/17 21:36 Dose: 7.5 mg Pantoprazole Sodium (Protonix Ec Tab) 40 mg PO DAILY [facility] Last Admin: 11/28/17 10:36 Dose: Not Given Rosuvastatin Calcium (Crestor) 10 mg PO HS [facility] Last Admin: 11/27/17 21:36 Dose: 10 mg Sevelamer Carbonate (Renvela) 2,400 mg PO TID [facility] Last Admin: 11/28/17 10:37 Dose: Not Given - Labs Labs: 11/25/17 15:29 11/26/17 13:57 PT 14.1 SECONDS (9.7-12.2) H 11/25/17 16:20 INR 1.3 11/25/17 16:20 APTT 39 SECONDS (21-34) H 11/25/17 16:20 - Constitutional Appears: Chronically Ill - Eye Exam Pupil Exam: NORMAL ACCOMODATION, PERRL - ENT Exam ENT Exam: Mucous Membranes Moist - Neck Exam Neck Exam: Full ROM - Respiratory Exam Respiratory Exam: Decreased Breath Sounds, Rales - Cardiovascular Exam Cardiovascular Exam: REGULAR RHYTHM, +S1, +S2 Additional comments: Systolic Murmur. - GI/Abdominal Exam GI & Abdominal Exam: Soft, Normal Bowel Sounds - Rectal Exam Rectal Exam: Deferred - Extremities Exam Extremities Exam: Normal Inspection - Back Exam Back Exam: Full ROM, NORMAL INSPECTION, paraspinal tenderness - Neurological Exam Neurological Exam: Alert, Awake, Oriented x3 - Psychiatric Exam Psychiatric exam: Depressed - Skin Skin Exam: Dry, Intact, Warm Assessment and Plan (1) Anemia in ESRD (end-stage renal disease) Status: Chronic (2) Hypertensive CKD, ESRD on dialysis Status: Chronic (3) IDDM (insulin dependent diabetes mellitus) Status: Chronic (4) Chronic congestive heart failure Status: Chronic (5) SOB (shortness of breath) Status: Acute (6) S/P CABG (coronary artery bypass graft) Status: Chronic (7) Acute on chronic systolic (congestive) heart failure Status: Acute (8) ESRD (end stage renal disease) on dialysis Status: Chronic - Assessment and Plan (Free Text) Assessment: Assessment: Acute CHF on a Chronic. CAD, S/P CABG and Ablation for A>FIB. Congestive systolic cardiomyopathy. IDDM Anemia Sec to ESRD ESRD Plan: Plan: Continue HD. Continue Eliquis and Plavix. D/C Norvasc. Continue Novolog Coverage.
[2017-11-28 14:00] LABS: BASO % 0.8 % (0.0-2.0); EOS # 0.2 K/uL (0.0-0.7); EOS % 3.7 % (0.0-4.0); HEMOGLOBIN 10.7 g/dL (12.0-18.0); LYMPH # 0.6 K/uL (1.0-4.3); LYMPH % 12.4 % (20.0-40.0); MEAN CELL VOLUME 86.4 fL (80.0-94.0); MEAN CORPUSCULAR HEMOGLOBIN 28.5 pg (27.0-31.0); MEAN PLATELET VOLUME 8.2 fL (7.2-11.7); MONO # 0.4 K/uL (0.0-0.8); MONO % 8.9 % (0.0-10.0); NEUT # 3.6 K/uL (1.8-7.0); NEUT % 74.2 % (50.0-75.0); RBC 3.77 Mil/uL (4.40-5.90); RED CELL DISTRIBUTION WIDTH 19.6 % (11.5-14.5); WHITE BLOOD COUNT 4.8 K/uL (4.8-10.8)
[2017-11-28 14:16] LABS: ALB/GLOB RATIO 1.3 (1.0-2.1); ALBUMIN 4.1 g/dL (3.5-5.0); CALCIUM 9.4 mg/dl (8.6-10.4)
--- NOTE | 2017-11-28 17:41 | CP.PCM.PN ---
Subjective - Date & Time of Evaluation Date of Evaluation: 11/28/17 Time of Evaluation: 17:40 - Subjective Subjective: pt is seen and examined, follow up is dictated # s/p hd today, had a uf about 2.9 lit restrict fluids to 1lit/day, extra hd in am Objective - Vital Signs/Intake and Output Vital Signs (last 24 hours): Temp Pulse Resp BP Pulse Ox 98.6 F 80 18 119/64 98 11/28/17 16:00 11/28/17 16:00 11/28/17 16:00 11/28/17 17:32 11/28/17 16:00 Intake and Output: 11/28/17 11/28/17 06:59 18:59 Intake Total 400 480 Balance 400 480 - Medications Medications: Current Medications Amlodipine Besylate (Norvasc) 10 mg PO DAILY [facility] Last Admin: 11/28/17 10:36 Dose: Not Given Apixaban (Eliquis) 5 mg PO BID [facility] Last Admin: 11/28/17 17:32 Dose: 5 mg Calcium Acetate (Phoslo) 667 mg PO BID [facility] Last Admin: 11/28/17 17:32 Dose: 667 mg Clopidogrel Bisulfate (Plavix) 75 mg PO DAILY [facility] Last Admin: 11/28/17 10:36 Dose: Not Given Docusate Sodium (Colace) 100 mg PO BID [facility] Last Admin: 11/28/17 17:32 Dose: 100 mg Dronabinol (Marinol) 2.5 mg PO BID [facility] Last Admin: 11/28/17 17:32 Dose: 2.5 mg Insulin Aspart (Novolog) 0 unit SC [facility] PRN Reason: Protocol Last Admin: 11/28/17 08:23 Dose: 2 u Metoprolol Tartrate (Lopressor) 25 mg PO BID [facility] Last Admin: 11/28/17 17:32 Dose: 25 mg Mirtazapine (Remeron) 7.5 mg PO [facility] Last Admin: 11/27/17 21:36 Dose: 7.5 mg Pantoprazole Sodium (Protonix Ec Tab) 40 mg PO DAILY [facility] Last Admin: 11/28/17 10:36 Dose: Not Given Rosuvastatin Calcium (Crestor) 10 mg PO HS [facility] Last Admin: 11/27/17 21:36 Dose: 10 mg Sevelamer Carbonate (Renvela) 2,400 mg PO TID [facility] Last Admin: 11/28/17 17:32 Dose: 2,400 mg - Labs Labs: 11/28/17 13:53 11/28/17 13:53 PT 14.1 SECONDS (9.7-12.2) H 11/25/17 16:20 INR 1.3 11/25/17 16:20 APTT 39 SECONDS (21-34) H 11/25/17 16:20
--- NOTE | 2017-11-28 19:26 | CP.PCM.PN ---
Subjective - Date & Time of Evaluation Date of Evaluation: 11/28/17 Time of Evaluation: 19:23 - Subjective Subjective: Patient still SOB in spite of HD this morning. Objective - Vital Signs/Intake and Output Vital Signs (last 24 hours): Temp Pulse Resp BP Pulse Ox 98.6 F 80 18 119/64 98 11/28/17 16:00 11/28/17 16:00 11/28/17 16:00 11/28/17 17:32 11/28/17 16:00 Intake and Output: 11/28/17 11/29/17 18:59 06:59 Intake Total 480 Balance 480 - Medications Medications: Current Medications Amlodipine Besylate (Norvasc) 10 mg PO DAILY [facility] Last Admin: 11/28/17 10:36 Dose: Not Given Apixaban (Eliquis) 5 mg PO BID [facility] Last Admin: 11/28/17 17:32 Dose: 5 mg Calcium Acetate (Phoslo) 667 mg PO BID [facility] Last Admin: 11/28/17 17:32 Dose: 667 mg Clopidogrel Bisulfate (Plavix) 75 mg PO DAILY [facility] Last Admin: 11/28/17 10:36 Dose: Not Given Docusate Sodium (Colace) 100 mg PO BID [facility] Last Admin: 11/28/17 17:32 Dose: 100 mg Dronabinol (Marinol) 2.5 mg PO BID [facility] Last Admin: 11/28/17 17:32 Dose: 2.5 mg Insulin Aspart (Novolog) 0 unit SC [facility] PRN Reason: Protocol Last Admin: 11/28/17 08:23 Dose: 2 u Metoprolol Tartrate (Lopressor) 25 mg PO BID [facility] Last Admin: 11/28/17 17:32 Dose: 25 mg Mirtazapine (Remeron) 7.5 mg PO [facility] Last Admin: 11/27/17 21:36 Dose: 7.5 mg Pantoprazole Sodium (Protonix Ec Tab) 40 mg PO DAILY [facility] Last Admin: 11/28/17 10:36 Dose: Not Given Rosuvastatin Calcium (Crestor) 10 mg PO HS [facility] Last Admin: 11/27/17 21:36 Dose: 10 mg Sevelamer Carbonate (Renvela) 2,400 mg PO TID [facility] Last Admin: 11/28/17 17:32 Dose: 2,400 mg - Labs Labs: 11/28/17 13:53 11/28/17 13:53 PT 14.1 SECONDS (9.7-12.2) H 11/25/17 16:20 INR 1.3 11/25/17 16:20 APTT 39 SECONDS (21-34) H 11/25/17 16:20 - Constitutional Appears: Chronically Ill - Eye Exam Eye Exam: Normal appearance Pupil Exam: NORMAL ACCOMODATION - ENT Exam ENT Exam: Normal Exam - Neck Exam Neck Exam: Normal Inspection - Respiratory Exam Additional comments: Rales up to mid lung xavier. - Cardiovascular Exam Cardiovascular Exam: REGULAR RHYTHM, Murmur - GI/Abdominal Exam GI & Abdominal Exam: Soft, Normal Bowel Sounds - Rectal Exam Rectal Exam: Deferred - Extremities Exam Extremities Exam: Full ROM, Normal Inspection - Back Exam Back Exam: NORMAL INSPECTION - Neurological Exam Neurological Exam: Alert, Awake, Oriented x3 - Psychiatric Exam Psychiatric exam: Anxious - Skin Skin Exam: Dry, Intact, Normal Color Assessment and Plan (1) Acute on chronic systolic (congestive) heart failure Assessment & Plan: Still SOB, in CHF. Needs more hemodialysis. Will decrease Metoprolol dosage. Status: Acute (2) ESRD (end stage renal disease) on dialysis Status: Chronic (3) Atrial fibrillation Assessment & Plan: To continue Eliquis. Status: Chronic
[2017-11-29] MEDS: (Novolog) Insulin Aspart, Recombinant 100 u/ml 10 ml vial SC SCH ×2 (07:30→21:29)
[2017-11-29 09:13] LABS: FREE T4 1.57 ng/dL (0.78-2.19)
[2017-11-29] MEDS: Pantoprazole 40 mg EC Tab PO SCH (10:16)
--- NOTE | 2017-11-29 10:29 | CP.PCM.PN ---
Subjective - Date & Time of Evaluation Date of Evaluation: 11/29/17 Time of Evaluation: 10:27 - Subjective Subjective: Patient still with millicent SOB. Had extra sessions of HD. Norvasc and metoprolol dosages had been decreased. BP is better. To have extra dialysis today. Objective - Vital Signs/Intake and Output Vital Signs (last 24 hours): Temp Pulse Resp BP Pulse Ox 97.9 F 80 20 116/63 99 11/29/17 07:00 11/29/17 07:00 11/29/17 07:00 11/29/17 07:00 11/29/17 07:00 Intake and Output: 11/29/17 11/29/17 06:59 18:59 Intake Total 400 Balance 400 - Medications Medications: Current Medications Amlodipine Besylate (Norvasc) 5 mg PO DAILY [facility] Last Admin: 11/29/17 10:19 Dose: 5 mg Apixaban (Eliquis) 5 mg PO BID [facility] Last Admin: 11/29/17 10:16 Dose: 5 mg Calcium Acetate (Phoslo) 667 mg PO BID [facility] Last Admin: 11/29/17 10:16 Dose: 667 mg Clopidogrel Bisulfate (Plavix) 75 mg PO DAILY [facility] Last Admin: 11/29/17 10:16 Dose: 75 mg Docusate Sodium (Colace) 100 mg PO BID [facility] Last Admin: 11/29/17 10:16 Dose: 100 mg Dronabinol (Marinol) 2.5 mg PO BID [facility] Last Admin: 11/29/17 10:16 Dose: 2.5 mg Insulin Aspart (Novolog) 0 unit SC [facility] PRN Reason: Protocol Last Admin: 11/29/17 07:30 Dose: Not Given Metoprolol Tartrate (Lopressor) 12.5 mg PO BID [facility] Last Admin: 11/29/17 10:17 Dose: 12.5 mg Mirtazapine (Remeron) 7.5 mg PO [facility] Last Admin: 11/28/17 21:11 Dose: 7.5 mg Pantoprazole Sodium (Protonix Ec Tab) 40 mg PO DAILY [facility] Last Admin: 11/29/17 10:16 Dose: 40 mg Rosuvastatin Calcium (Crestor) 10 mg PO HS [facility] Last Admin: 11/28/17 21:11 Dose: 10 mg Sevelamer Carbonate (Renvela) 2,400 mg PO TID [facility] Last Admin: 11/29/17 10:16 Dose: 2,400 mg - Labs Labs: 11/28/17 13:53 11/28/17 13:53 PT 14.1 SECONDS (9.7-12.2) H 11/25/17 16:20 INR 1.3 11/25/17 16:20 APTT 39 SECONDS (21-34) H 11/25/17 16:20 - Constitutional Appears: Chronically Ill - Eye Exam Eye Exam: Normal appearance Pupil Exam: PERRL - ENT Exam ENT Exam: Mucous Membranes Moist - Neck Exam Neck Exam: Full ROM - Respiratory Exam Respiratory Exam: Decreased Breath Sounds, Rales, Respiratory Distress - Cardiovascular Exam Cardiovascular Exam: REGULAR RHYTHM, +S1, +S2 - GI/Abdominal Exam GI & Abdominal Exam: Soft, Normal Bowel Sounds - Rectal Exam Rectal Exam: Deferred - Extremities Exam Extremities Exam: Full ROM, Normal Inspection - Back Exam Back Exam: Full ROM, paraspinal tenderness - Neurological Exam Neurological Exam: Alert, Awake, Oriented x3 - Psychiatric Exam Psychiatric exam: Anxious - Skin Skin Exam: Dry, Intact, Warm Assessment and Plan (1) Anemia in ESRD (end-stage renal disease) Status: Chronic (2) Hypertensive CKD, ESRD on dialysis Status: Chronic (3) IDDM (insulin dependent diabetes mellitus) Status: Chronic (4) Chronic congestive heart failure Status: Chronic (5) SOB (shortness of breath) Status: Acute (6) S/P CABG (coronary artery bypass graft) Status: Chronic (7) Acute on chronic systolic (congestive) heart failure Status: Acute (8) ESRD (end stage renal disease) on dialysis Status: Chronic - Assessment and Plan (Free Text) Assessment: Assessment: CAD S/P CABG S/P Atrial fibrillation and ablation. Acute CHF on Chronic systolic CHF. IDDM ESRD. HTN. Plan: Plan: Continue HD. Continue Metoprolol, Norvasc, Eliquis and Plavix.
--- NOTE | 2017-11-29 14:12 | CP.PCM.PN ---
Subjective - Date & Time of Evaluation Date of Evaluation: 11/29/17 Time of Evaluation: 14:12 - Subjective Subjective: pt is seen and examined, follow up consult is dictated, seen in hd #[id number] for extra hd today Objective - Vital Signs/Intake and Output Vital Signs (last 24 hours): Temp Pulse Resp BP Pulse Ox 97.9 F 80 20 116/63 99 11/29/17 07:00 11/29/17 11:41 11/29/17 07:00 11/29/17 07:00 11/29/17 07:00 Intake and Output: 11/29/17 11/29/17 06:59 18:59 Intake Total 400 Balance 400 - Medications Medications: Current Medications Alprazolam (Xanax) 0.25 mg PO [facility] Stop: 12/06/17 22:01 Amlodipine Besylate (Norvasc) 5 mg PO DAILY [facility] Last Admin: 11/29/17 10:19 Dose: 5 mg Apixaban (Eliquis) 5 mg PO BID [facility] Last Admin: 11/29/17 10:16 Dose: 5 mg Calcium Acetate (Phoslo) 667 mg PO BID [facility] Last Admin: 11/29/17 10:16 Dose: 667 mg Clopidogrel Bisulfate (Plavix) 75 mg PO DAILY [facility] Last Admin: 11/29/17 10:16 Dose: 75 mg Docusate Sodium (Colace) 100 mg PO BID [facility] Last Admin: 11/29/17 10:16 Dose: 100 mg Dronabinol (Marinol) 2.5 mg PO BID [facility] Last Admin: 11/29/17 10:16 Dose: 2.5 mg Insulin Aspart (Novolog) 0 unit SC [facility] PRN Reason: Protocol Last Admin: 11/29/17 07:30 Dose: Not Given Metoprolol Tartrate (Lopressor) 12.5 mg PO BID [facility] Last Admin: 11/29/17 10:17 Dose: 12.5 mg Mirtazapine (Remeron) 7.5 mg PO [facility] Last Admin: 11/28/17 21:11 Dose: 7.5 mg Pantoprazole Sodium (Protonix Ec Tab) 40 mg PO DAILY [facility] Last Admin: 11/29/17 10:16 Dose: 40 mg Rosuvastatin Calcium (Crestor) 10 mg PO HS [facility] Last Admin: 11/28/17 21:11 Dose: 10 mg Sevelamer Carbonate (Renvela) 2,400 mg PO TID [facility] Last Admin: 11/29/17 13:48 Dose: 2,400 mg - Labs Labs: 11/28/17 13:53 11/28/17 13:53 PT 14.1 SECONDS (9.7-12.2) H 11/25/17 16:20 INR 1.3 11/25/17 16:20 APTT 39 SECONDS (21-34) H 11/25/17 16:20
[2017-11-29] MEDS ORDERED: Albumin Human 25% (12.5 gm/50 ml) IV ONE ×2 (16:00→17:02)
--- NOTE | 2017-11-29 18:36 | CP.PCM.PN ---
Subjective - Date & Time of Evaluation Date of Evaluation: 11/29/17 Time of Evaluation: 18:34 - Subjective Subjective: Patient examined during HD. Less SOB, but still with rales at both lungs. Objective - Vital Signs/Intake and Output Vital Signs (last 24 hours): Temp Pulse Resp BP Pulse Ox 97.6 F 80 15 115/66 96 11/29/17 15:00 11/29/17 15:51 11/29/17 16:50 11/29/17 16:50 11/29/17 16:50 Intake and Output: 11/29/17 11/29/17 06:59 18:59 Intake Total 400 Balance 400 - Medications Medications: Current Medications Alprazolam (Xanax) 0.25 mg PO [facility] Stop: 12/06/17 22:01 Apixaban (Eliquis) 5 mg PO BID [facility] Last Admin: 11/29/17 10:16 Dose: 5 mg Calcium Acetate (Phoslo) 667 mg PO BID [facility] Last Admin: 11/29/17 10:16 Dose: 667 mg Clopidogrel Bisulfate (Plavix) 75 mg PO DAILY [facility] Last Admin: 11/29/17 10:16 Dose: 75 mg Docusate Sodium (Colace) 100 mg PO BID [facility] Last Admin: 11/29/17 10:16 Dose: 100 mg Dronabinol (Marinol) 2.5 mg PO BID [facility] Last Admin: 11/29/17 10:16 Dose: 2.5 mg Insulin Aspart (Novolog) [address] [facility] PRN Reason: Protocol Last Admin: 11/29/17 07:30 Dose: Not Given Metoprolol Tartrate (Lopressor) 12.5 mg PO BID [facility] Last Admin: 11/29/17 10:17 Dose: 12.5 mg Mirtazapine (Remeron) 7.5 mg PO [facility] Last Admin: 11/28/17 21:11 Dose: 7.5 mg Pantoprazole Sodium (Protonix Ec Tab) 40 mg PO DAILY [facility] Last Admin: 11/29/17 10:16 Dose: 40 mg Rosuvastatin Calcium (Crestor) 10 mg PO [facility] Last Admin: 11/28/17 21:11 Dose: 10 mg Sevelamer Carbonate (Renvela) 2,400 mg PO TID [facility] Last Admin: 07/28/18 13:48 Dose: 2,400 mg - Labs Labs: 11/28/17 13:53 11/28/17 13:53 PT 14.1 SECONDS (9.7-12.2) H 11/25/17 16:20 INR 1.3 11/25/17 16:20 APTT 39 SECONDS (21-34) H 11/25/17 16:20 - Constitutional Appears: No Acute Distress, Chronically Ill - Head Exam Head Exam: NORMAL INSPECTION - Eye Exam Eye Exam: Normal appearance - ENT Exam ENT Exam: Normal Exam - Neck Exam Neck Exam: Normal Inspection - Respiratory Exam Respiratory Exam: Rales - Cardiovascular Exam Cardiovascular Exam: REGULAR RHYTHM, Murmur - GI/Abdominal Exam GI & Abdominal Exam: Soft, Normal Bowel Sounds - Rectal Exam Rectal Exam: Deferred - Extremities Exam Extremities Exam: Normal Inspection - Back Exam Back Exam: NORMAL INSPECTION - Neurological Exam Neurological Exam: Alert, Awake, Oriented x3 - Psychiatric Exam Psychiatric exam: Anxious - Skin Skin Exam: Dry, Intact, Normal Color, Warm Assessment and Plan (1) Acute on chronic systolic (congestive) heart failure Assessment & Plan: To continue HD. Status: Acute (2) ESRD (end stage renal disease) on dialysis Status: Chronic (3) Atrial fibrillation Status: Chronic
--- NOTE | 2017-11-29 20:07 | PN ---
DATE: 11/29/2017 FOLLOWUP RENAL CONSULTATION LOCATION: The patient is located in room 567, bed B. REQUESTED BY: Angelia Lau MD REASON FOR FOLLOWUP: End-stage renal disease, continuation of the hemodialysis for extra hemodialysis. 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 The patient was dialyzed on Friday, Friday, and Friday. The patient still complains of mild shortness of breath on and off and proBNP is elevated. The patient is not in distress. No chest pain, no palpitations, no fever, no cough, no abdominal pain, no nausea, and no vomiting or diarrhea. 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 VITAL SIGNS: As follows: Blood pressure this morning 116/63, pulse 80, respirations 20, temperature 97.9, and saturations 99%. Height 5 feet and 5 inches, weight is 174 pounds. HEENT: Pupils normally reactive to light and accommodation. Conjunctivae pink. Sclerae anicteric. Tongue is moistened. Trachea is midline. LUNGS: Symmetric on both sides. Bilateral breath sounds present. Bilateral crackles present. CVS: [place] at the fifth intercostal space, midclavicular line. S1 and S2 audible. No murmur or gallop. ABDOMEN: Normal in appearance. Soft tympanic. No guarding, no rigidity, and no hepatosplenomegaly. 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 Nonfocal neuro examination. Cranial nerves II through XII are grossly intact. Sensory and motor system is within normal limits. EXTREMITIES: No cyanosis, no clubbing. The patient has 1+/2 trace edema in both lower extremities. CURRENT MEDICATIONS: Include as follows: Colace 100 mg p.o. b.i.d., Crestor 10 mg at bedtime, Eliquis 5 mg b.i.d., metoprolol 25 mg p.o. b.i.d., Marinol 2.5 mg p.o. b.i.d., amlodipine 5 mg p.o. daily, PhosLo 667 mg p.o. b.i.d., Plavix 75 mg daily, Protonix 40 mg p.o. daily, Remeron 7.5 mg p.o. at bedtime, Renvela 2.4 g p.o. t.i.d., and Xanax 0.25 mg p.o. at bedtime. LABORATORY DATA: Include as follows: As of 11/28/2017, H and H 10.7 and 32.6, potassium 4.2, chloride 93, CO2 of 33, BUN 22, creatinine 4.2, sodium 139, glucose 181, and calcium 9.4. His proBNP is 124,000 and his Accu-Cheks this morning 148 and 248. 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 1. End-stage renal disease. We will give an extra hemodialysis today for fluid overload. 2. Congestive heart failure. 3. Hypertension. Blood pressure is on the low side. We will discontinue Norvasc. We will continue metoprolol. Hold metoprolol for systolic blood pressure less than 130 and heart rate 60 also and continue all his current medications. Continue Renvela 2.4 g p.o. t.i.d. with PhosLo 667 mg p.o. b.i.d., Eliquis, Crestor, Colace, and Protonix. We will follow with you. Thank you for allowing me to participate in your patient's care. The patient is being dialyzed at this time and ultrafiltration goal is about 2 to 2.5 liters. Alyssia Meol MD [facility] # [id number]
[2017-11-30] MEDS: (Novolog) Insulin Aspart, Recombinant 100 u/ml 10 ml vial SC SCH ×2 (09:01→21:01)
[2017-11-30] MEDS: Pantoprazole 40 mg EC Tab PO SCH (09:02)
--- NOTE | 2017-11-30 18:57 | CP.PCM.PN ---
Subjective - Date & Time of Evaluation Date of Evaluation: 11/30/17 Time of Evaluation: 18:57 - Subjective Subjective: pt is seen and examined, follow up consult is dictated #[id number] for hd in am Objective - Vital Signs/Intake and Output Vital Signs (last 24 hours): Temp Pulse Resp BP Pulse Ox 97.7 F 80 18 122/65 99 11/30/17 15:00 11/30/17 17:10 11/30/17 15:00 11/30/17 17:10 11/30/17 15:00 Intake and Output: 11/30/17 11/30/17 06:59 18:59 Intake Total 400 480 Balance 400 480 - Medications Medications: Current Medications Alprazolam (Xanax) 0.25 mg PO [facility] Stop: 12/06/17 22:01 Last Admin: 11/29/17 21:24 Dose: 0.25 mg Apixaban (Eliquis) 5 mg PO BID [facility] Last Admin: 11/30/17 17:12 Dose: 5 mg Calcium Acetate (Phoslo) 667 mg PO BID [facility] Last Admin: 11/30/17 17:12 Dose: 667 mg Clopidogrel Bisulfate (Plavix) 75 mg PO DAILY [facility] Last Admin: 11/30/17 09:01 Dose: 75 mg Docusate Sodium (Colace) 100 mg PO BID [facility] Last Admin: 11/30/17 17:12 Dose: 100 mg Dronabinol (Marinol) 2.5 mg PO BID [facility] Last Admin: 11/30/17 17:12 Dose: 2.5 mg Insulin Aspart (Novolog) 0 unit SC [facility] PRN Reason: Protocol Last Admin: 11/30/17 09:01 Dose: 2 u Metoprolol Tartrate (Lopressor) 12.5 mg PO BID [facility] Last Admin: 11/30/17 17:12 Dose: 12.5 mg Mirtazapine (Remeron) 7.5 mg PO [facility] Last Admin: 11/29/17 21:24 Dose: 7.5 mg Pantoprazole Sodium (Protonix Ec Tab) 40 mg PO DAILY [facility] Last Admin: 11/30/17 09:02 Dose: 40 mg Rosuvastatin Calcium (Crestor) 10 mg PO [facility] Last Admin: 11/29/17 21:24 Dose: 10 mg Sevelamer Carbonate (Renvela) 2,400 mg PO TID [facility] Last Admin: 11/30/17 17:12 Dose: 2,400 mg - Labs Labs: 11/28/17 13:53 11/28/17 13:53 PT 14.1 SECONDS (9.7-12.2) H 11/25/17 16:20 INR 1.3 11/25/17 16:20 APTT 39 SECONDS (21-34) H 11/25/17 16:20
[2017-12-01] MEDS ORDERED: Albuterol-Ipratrop 3 mg / 0.5 (3 ml) UD INH STA (03:03)
--- NOTE | 2017-12-01 03:17 | PN ---
DATE: 11/30/2017 FOLLOWUP RENAL CONSULTATION LOCATION: The patient is located in room 567, bed B. REQUESTED BY: Angelia Lau MD REASON FOR FOLLOWUP: End-stage renal disease, CHF, continuation of hemodialysis. HISTORY OF PRESENT ILLNESS: Mr. Haley is a 77-year-old elderly very pleasant [place] male with a history of longstanding hypertension, diabetes, hyperlipidemia, end-stage renal disease, coronary artery disease, status post CABG about 8 months ago and status post pacemaker placement about a year ago who was admitted with a chief complaint of sudden onset of shortness of breath. The patient is noncompliant with fluid intake. The patient was also found to be in CHF and hyperkalemia. The patient underwent stat hemodialysis on Friday and regular dialysis on Friday and Friday, and extra hemodialysis on Friday for fluid overload. The patient still complains of mild shortness of breath, not in distress. No chest pain. No palpitation. No fever. No cough. PHYSICAL EXAMINATION: VITAL SIGNS: As follows: Blood pressure 122/65, pulse 80, respirations about 18, temperature 97.7, saturation 99%, temperature 97.7 on 4 liters nasal cannula. Height 5 feet 5 inches, weight is 174 pounds. GENERAL: Mr. Haley is a 77-year-old elderly male, moderately built, moderately nourished, not in acute distress. HEENT: Pupils normal and reactive to light and accommodation. Conjunctivae pink. Sclerae anicteric. Tongue is moist and trachea is midline. LUNGS: Symmetric on both side. Bilateral breath sounds present. Bilateral basal crackles present, left more than the right. CVS: [place] at the fifth intercostal space, midclavicular area. S1, S2 audible. No murmur or gallop. ABDOMEN: Normal in appearance. Soft, tympanic. No guarding. No rigidity. No splenomegaly. COUNTERINTELLIGENCE ANALYST: The patient is alert, awake and oriented x3. Nonfocal neuro examination. Cranial nerves II through XII grossly intact. Sensory and motor system is within normal limits. EXTREMITIES: No cyanosis, no clubbing. No edema of the legs now. MEDICATIONS: His current medications include as follows: Colace 100 mg p.o. b.i.d., Crestor 10 mg at bedtime, Eliquis 5 mg daily, metoprolol 12.5 mg p.o. b.i.d., Marinol 2.5 mg p.o. b.i.d., NovoLog insulin per sliding scale, PhosLo 667 mg p.o. b.i.d., Plavix 75 mg p.o. daily, Protonix 40 mg daily, Remeron 7.5 mg p.o. at bedtime, Renvela 2.4 g p.o. t.i.d., Xanax 0.25 mg p.o. at bedtime. LABORATORY DATA: No new labs are available. Accu-Cheks as of 11/30/2017, 188, 214, and 177. IMPRESSION: In summary, Mr. Haley is a 77-year-old elderly very pleasant [place] male with a past medical history of hypertension, diabetes, end-stage renal disease, hyperlipidemia, coronary artery disease, status post coronary artery bypass graft, status post pacemaker placement who was admitted with shortness of breath and found to be in congestive heart failure and hyperkalemia. 1. End-stage renal disease. Continue hemodialysis, now three times a week. We will try to ultrafiltrate as much as patient can tolerate. 2. Hypertension. Hold blood pressure medicine for systolic blood pressure less than 130 and heart rate less than 60, Norvasc is on hold, discontinued due to hypotension. 3. Diabetes. 4. Coronary artery disease, asymptomatic. Restrict fluids to 1 liter per day, and continue PhosLo and Renvela; and we will also add Nephrocaps and Zemplar during dialysis and Procrit p.r.n. for hemoglobin less than 11. We will follow with you. Thank you for allowing me to participate in your patient's care.. Alyssia Melo MD
[2017-12-01] MEDS: (Novolog) Insulin Aspart, Recombinant 100 u/ml 10 ml vial SC SCH ×2 (08:28→21:27)
[2017-12-01] MEDS: Multivitamin Vitamin B Complex (Nephro-Vite) Tab PO SCH (08:29)
--- NOTE | 2017-12-01 09:22 | PN ---
DATE: 11/28/2017 FOLLOWUP RENAL CONSULTATION LOCATION: The patient is located in room 567, bed B. REQUESTED BY: Angelia Lau MD REASON FOR FOLLOWUP: End-stage renal disease, continuation of hemodialysis. SUBJECTIVE: The patient is a 77-year-old elderly Armenian male with a past medical history significant for longstanding hypertension, diabetes, hyperlipidemia, end-stage renal disease, CAD, status post CABG about six to eight months ago who was admitted with a chief complaint of sudden onset of shortness of breath, hyperkalemia and CHF. The patient underwent emergency hemodialysis on Friday and regular dialysis on Friday and Friday. The patient is not in acute distress. He still complains of mild shortness of breath. No chest pain. No palpitations. No abdominal pain. No nausea, vomiting, or diarrhea. PHYSICAL EXAMINATION: VITAL SIGNS: As follows: Blood pressure 119/64, pulse 80, respirations 18, temperature 98.6, saturation 98%. Height 5 feet 5 inches. Weight is 174 pounds. GENERAL: The patient is a 77-year-old elderly male, moderately built, moderately nourished, not in distress. HEENT: Pupils are normal, reactive to light and accommodation. Conjunctivae pink. Sclerae anicteric. Tongue is moist. Trachea is midline. LUNGS: Symmetric on both sides. Bilateral breath sounds present. Bilateral basal crackles present still. CVS: [place] at the fifth intercostal space, midclavicular line. S1, S2 audible. No murmur or gallop. ABDOMEN: Normal in appearance, soft, tympanic. No guarding. No rigidity. No hepatosplenomegaly. REMARKETING REP: The patient is alert, awake, and oriented x3. Nonfocal neuro examination. Cranial nerves II-XII grossly intact. Sensory and motor system is within normal limits. EXTREMITIES: No cyanosis. No clubbing. No edema. MEDICATIONS: His current medications include as follows: Colace 100 mg p.o. b.i.d., Crestor 10 mg at bedtime, Eliquis 5 mg p.o. b.i.d., metoprolol 12.5 mg p.o. b.i.d., Marinol 2.5 mg p.o. b.i.d., amlodipine 5 mg daily, NovoLog per sliding scale, PhosLo 667 mg p.o. b.i.d., Plavix 75 mg p.o. daily, Protonix 40 mg p.o. daily, Remeron 7.5 mg p.o. at bedtime, Renvela 2.4 g p.o. t.i.d. LABORATORY DATA: His laboratory data include as follows as on 11/28/2017: WBC 4.8, hemoglobin 10.7, hematocrit is 32.6, platelets 84. Sodium 139, potassium 4.2, chloride 93, CO2 of 33, BUN 22, creatinine 4.2, glucose 181, calcium 9.4. Total bili 1, AST 22, ALT 30, alkaline phosphatase 93, total protein 7.3, albumin is 4.1. ASSESSMENT AND PLAN: In summary, the patient is a 77-year-old elderly Armenian male with hypertension, diabetes, hyperlipidemia, coronary artery disease, end-stage renal disease, status post coronary artery bypass graft who was admitted with sudden onset of shortness of breath and found to have hyperkalemia and congestive heart failure and fluid overload. 1. End-stage renal disease. Continue hemodialysis three times a week. 2. Congestive heart failure, most likely secondary to noncompliant with fluid intake. 3. Hypertension. Blood pressure is stable. Hold Norvasc for systolic blood pressure less than 130. 4. Diabetes. 5. Coronary artery disease, status post coronary artery bypass graft, asymptomatic. We will consider extra hemodialysis in a.m., restrict fluids to 1 liter per day. Continue his phosphate binders, Renvela, and calcium acetate. The patient underwent hemodialysis today, had ultrafiltration about 2.9 liters net. We will follow with you. Thank you for allowing me to participate in your patient's care. Alyssia Melo MD
[2017-12-01] MEDS: Pantoprazole 40 mg EC Tab PO SCH ×2 (09:40→13:20)
[2017-12-01] MEDS: Paricalcitol 2 mcg/ml Inj IV SCH (10:21)
--- NOTE | 2017-12-01 13:03 | CP.PCM.PN ---
Subjective - Date & Time of Evaluation Date of Evaluation: 12/01/17 Time of Evaluation: 13:01 - Subjective Subjective: SOB same. Patient is very anxious about his SOB. Had HD just now. Still with rales at both lung xavier.. Objective - Vital Signs/Intake and Output Vital Signs (last 24 hours): Temp Pulse Resp BP Pulse Ox 97.2 F L 81 18 118/69 100 12/01/17 12:35 12/01/17 12:35 12/01/17 12:35 12/01/17 12:35 12/01/17 12:35 Intake and Output: 12/01/17 12/01/17 06:59 18:59 Intake Total 400 Balance 400 - Medications Medications: Current Medications Alprazolam (Xanax) 0.25 mg PO [facility] Stop: 12/06/17 22:01 Last Admin: 11/30/17 21:04 Dose: 0.25 mg Apixaban (Eliquis) 5 mg PO BID [facility] Last Admin: 12/01/17 09:40 Dose: Not Given Calcium Acetate (Phoslo) 667 mg PO BID [facility] Last Admin: 12/01/17 09:40 Dose: Not Given Clopidogrel Bisulfate (Plavix) 75 mg PO DAILY [facility] Last Admin: 12/01/17 09:40 Dose: Not Given Docusate Sodium (Colace) 100 mg PO BID [facility] Last Admin: 12/01/17 09:40 Dose: Not Given Dronabinol (Marinol) 2.5 mg PO BID [facility] Last Admin: 12/01/17 09:40 Dose: Not Given Insulin Aspart (Novolog) 0 unit SC [facility] PRN Reason: Protocol Last Admin: 12/01/17 08:28 Dose: 3 u Losartan Potassium (Cozaar) 25 mg PO DAILY [facility] Metoprolol Tartrate (Lopressor) 12.5 mg PO BID [facility] Last Admin: 12/01/17 09:40 Dose: Not Given Mirtazapine (Remeron) 7.5 mg PO [facility] Last Admin: 11/30/17 21:04 Dose: 7.5 mg Pantoprazole Sodium (Protonix Ec Tab) 40 mg PO DAILY [facility] Last Admin: 12/01/17 09:40 Dose: Not Given Paricalcitol (Zemplar) 2 mcg IV [facility] Last Admin: 12/01/17 10:21 Dose: 2 mcg Rosuvastatin Calcium (Crestor) 10 mg PO HS [facility] Last Admin: 11/30/17 21:04 Dose: 10 mg Sevelamer Carbonate (Renvela) 2,400 mg PO TID [facility] Last Admin: 12/01/17 09:40 Dose: Not Given Vitamin B Complex/Vit C/Folic Acid (Nephro-Soo) 1 tab PO 0800 [facility] Last Admin: 12/01/17 08:29 Dose: 1 tab - Labs Labs: 11/28/17 13:53 11/28/17 13:53 PT 14.1 SECONDS (9.7-12.2) H 11/25/17 16:20 INR 1.3 11/25/17 16:20 APTT 39 SECONDS (21-34) H 11/25/17 16:20 - Constitutional Appears: No Acute Distress, Chronically Ill - Head Exam Head Exam: ATRAUMATIC, NORMAL INSPECTION, NORMOCEPHALIC - Eye Exam Eye Exam: Normal appearance Pupil Exam: PERRL - ENT Exam ENT Exam: Mucous Membranes Moist, Normal External Ear Exam - Neck Exam Neck Exam: Full ROM - Respiratory Exam Respiratory Exam: Decreased Breath Sounds, Rales - Cardiovascular Exam Cardiovascular Exam: +S1, +S2 - GI/Abdominal Exam GI & Abdominal Exam: Soft, Normal Bowel Sounds - Rectal Exam Rectal Exam: Deferred - Extremities Exam Extremities Exam: Full ROM - Back Exam Back Exam: NORMAL INSPECTION - Neurological Exam Neurological Exam: Alert, Awake, Oriented x3 - Psychiatric Exam Psychiatric exam: Anxious, Depressed - Skin Skin Exam: Dry, Intact, Warm Assessment and Plan (1) Anemia in ESRD (end-stage renal disease) Status: Chronic (2) Hypertensive CKD, ESRD on dialysis Status: Chronic (3) IDDM (insulin dependent diabetes mellitus) Status: Chronic (4) Chronic congestive heart failure Status: Chronic (5) SOB (shortness of breath) Status: Acute (6) S/P CABG (coronary artery bypass graft) Status: Chronic (7) Acute on chronic systolic (congestive) heart failure Status: Acute (8) ESRD (end stage renal disease) on dialysis Status: Chronic - Assessment and Plan (Free Text) Assessment: Assessment: CAD ESRD Atrial fibrillation. HTN IDDM Anemia secondary to ESRD. Plan: PLan: Continue HD. Continue Eliquis
--- NOTE | 2017-12-01 18:11 | CP.PCM.PN ---
Subjective - Date & Time of Evaluation Date of Evaluation: 12/01/17 Time of Evaluation: 13:00 - Subjective Subjective: Patient less SOB, but still weak, had HD today. Objective - Vital Signs/Intake and Output Vital Signs (last 24 hours): Temp Pulse Resp BP Pulse Ox 97.8 F 80 20 115/57 L 98 12/01/17 15:58 12/01/17 17:42 12/01/17 15:58 12/01/17 15:58 12/01/17 15:58 Intake and Output: 12/01/17 12/01/17 06:59 18:59 Intake Total 400 480 Balance 400 480 - Medications Medications: Current Medications Albuterol/Ipratropium (Duoneb 3 Mg/0.5 Mg (3 Ml) Ud) 3 ml INH RQ6 PRN PRN Reason: Shortness of Breath Alprazolam (Xanax) 0.5 mg PO Q12H [facility] Last Admin: 12/01/17 14:59 Dose: 0.5 mg Apixaban (Eliquis) 5 mg PO BID [facility] Last Admin: 12/01/17 17:23 Dose: 5 mg Calcium Acetate (Phoslo) 667 mg PO BID [facility] Last Admin: 12/01/17 17:22 Dose: 667 mg Clopidogrel Bisulfate (Plavix) 75 mg PO DAILY [facility] Last Admin: 12/01/17 13:20 Dose: 75 mg Docusate Sodium (Colace) 100 mg PO BID [facility] Last Admin: 12/01/17 17:22 Dose: 100 mg Dronabinol (Marinol) 2.5 mg PO BID [facility] Last Admin: 12/01/17 17:22 Dose: 2.5 mg Insulin Aspart (Novolog) 0 unit SC [facility] PRN Reason: Protocol Last Admin: 12/01/17 08:28 Dose: 3 u Losartan Potassium (Cozaar) 25 mg PO DAILY [facility] Last Admin: 12/01/17 13:20 Dose: 25 mg Metoprolol Tartrate (Lopressor) 12.5 mg PO BID [facility] Last Admin: 12/01/17 17:22 Dose: 12.5 mg Mirtazapine (Remeron) 15 mg PO HS [facility] Pantoprazole Sodium (Protonix Ec Tab) 40 mg PO DAILY [facility] Last Admin: 12/01/17 13:20 Dose: 40 mg Paricalcitol (Zemplar) 2 mcg IV MWF [facility] Last Admin: 12/01/17 10:21 Dose: 2 mcg Rosuvastatin Calcium (Crestor) 10 mg PO HS [facility] Last Admin: 11/30/17 21:04 Dose: 10 mg Sevelamer Carbonate (Renvela) 2,400 mg PO TID [facility] Last Admin: 12/01/17 17:21 Dose: 2,400 mg Vitamin B Complex/Vit C/Folic Acid (Nephro-Soo) 1 tab PO 0800 [facility] Last Admin: 12/01/17 08:29 Dose: 1 tab - Labs Labs: 11/28/17 13:53 11/28/17 13:53 PT 14.1 SECONDS (9.7-12.2) H 11/25/17 16:20 INR 1.3 11/25/17 16:20 APTT 39 SECONDS (21-34) H 11/25/17 16:20 - Constitutional Appears: No Acute Distress, Chronically Ill - Head Exam Head Exam: NORMAL INSPECTION - Eye Exam Eye Exam: Normal appearance - ENT Exam ENT Exam: Normal Exam - Neck Exam Neck Exam: Normal Inspection - Respiratory Exam Additional comments: Rales heard at both bases. - Cardiovascular Exam Cardiovascular Exam: REGULAR RHYTHM - GI/Abdominal Exam GI & Abdominal Exam: Soft, Normal Bowel Sounds - Rectal Exam Rectal Exam: Deferred - Extremities Exam Extremities Exam: Normal Inspection - Back Exam Back Exam: NORMAL INSPECTION - Neurological Exam Neurological Exam: Alert, Awake, Oriented x3 - Psychiatric Exam Psychiatric exam: Anxious - Skin Skin Exam: Dry, Intact, Normal Color Assessment and Plan (1) Acute on chronic systolic (congestive) heart failure Assessment & Plan: Start on Losartan 25 mg PO qd. To continue HD. Status: Acute (2) ESRD (end stage renal disease) on dialysis Status: Chronic (3) Atrial fibrillation Status: Chronic
--- NOTE | 2017-12-01 18:58 | CP.PCM.PN ---
Subjective - Date & Time of Evaluation Date of Evaluation: 12/01/17 Time of Evaluation: 18:57 - Subjective Subjective: pt is seen and examined, follow up consult is dictated #[id number] s/p hd today, uf 2.5 lit stable tx, restrict fluids to 1 lit/day Objective - Vital Signs/Intake and Output Vital Signs (last 24 hours): Temp Pulse Resp BP Pulse Ox 97.8 F 80 20 127/66 98 12/01/17 15:58 12/01/17 17:42 12/01/17 15:58 12/01/17 17:20 12/01/17 15:58 Intake and Output: 12/01/17 12/01/17 06:59 18:59 Intake Total 400 480 Balance 400 480 - Medications Medications: Current Medications Albuterol/Ipratropium (Duoneb 3 Mg/0.5 Mg (3 Ml) Ud) 3 ml INH RQ6 PRN PRN Reason: Shortness of Breath Alprazolam (Xanax) 0.5 mg PO Q12H [facility] Last Admin: 12/01/17 14:59 Dose: 0.5 mg Apixaban (Eliquis) 5 mg PO BID [facility] Last Admin: 12/01/17 17:23 Dose: 5 mg Calcium Acetate (Phoslo) 667 mg PO BID [facility] Last Admin: 12/01/17 17:22 Dose: 667 mg Clopidogrel Bisulfate (Plavix) 75 mg PO DAILY [facility] Last Admin: 12/01/17 13:20 Dose: 75 mg Docusate Sodium (Colace) 100 mg PO BID [facility] Last Admin: 12/01/17 17:22 Dose: 100 mg Dronabinol (Marinol) 2.5 mg PO BID [facility] Last Admin: 12/01/17 17:22 Dose: 2.5 mg Insulin Aspart (Novolog) 0 unit SC [facility] PRN Reason: Protocol Last Admin: 12/01/17 08:28 Dose: 3 u Losartan Potassium (Cozaar) 25 mg PO DAILY [facility] Last Admin: 12/01/17 13:20 Dose: 25 mg Metoprolol Tartrate (Lopressor) 12.5 mg PO BID [facility] Last Admin: 12/01/17 17:22 Dose: 12.5 mg Mirtazapine (Remeron) 15 mg PO HS [facility] Pantoprazole Sodium (Protonix Ec Tab) 40 mg PO DAILY [facility] Last Admin: 12/01/17 13:20 Dose: 40 mg Paricalcitol (Zemplar) 2 mcg IV MWF [facility] Last Admin: 12/01/17 10:21 Dose: 2 mcg Rosuvastatin Calcium (Crestor) 10 mg PO HS [facility] Last Admin: 11/30/17 21:04 Dose: 10 mg Sevelamer Carbonate (Renvela) 2,400 mg PO TID [facility] Last Admin: 12/01/17 17:21 Dose: 2,400 mg Vitamin B Complex/Vit C/Folic Acid (Nephro-Soo) 1 tab PO 0800 [facility] Last Admin: 12/01/17 08:29 Dose: 1 tab - Labs Labs: 11/28/17 13:53 11/28/17 13:53 PT 14.1 SECONDS (9.7-12.2) H 11/25/17 16:20 INR 1.3 11/25/17 16:20 APTT 39 SECONDS (21-34) H 11/25/17 16:20
[2017-12-01] MEDS: Albuterol-Ipratrop 3 mg / 0.5 (3 ml) UD INH PRN (23:48)
--- NOTE | 2017-12-02 01:41 | CON ---
DATE: 12/01/2017 CHIEF COMPLAINT AND REASON FOR CONSULTATION: The patient is referred by Dr. Lau for evaluation and management of increasing anxiety as well as depression. HISTORY OF PRESENT ILLNESS: This is the case of a 77-year-old male, well known to me from previous consults at [facility]. 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 The patient was brought in by the ambulance complaining of increasing shortness of breath for the last 2 months. The patient appears to have CHF as well as significant cardiac problems, also a dialysis patient. The patient reports that he has trouble sleeping at night and becomes very anxious. He has interrupted sleep and gets this anxiety attack, he is afraid he is going to . The patient was seen by me at [facility]. I did put him on Remeron for depression. The patient has poor appetite and depressed. He is also taking Marinol to improve his appetite and now taking Xanax 0.25 mg at bedtime. He has been compliant with dialysis, but worried that he is going to and having these increased anxiety attacks. He is concerned that he has a 9-year-old grand child that he is taking care of and his daughter is a single parent. His has Alzheimer's and needs a lot of care and also the patient's own medical problems. The patient asks if his meds could be re-adjusted, so his anxiety would be better controlled, i.e., he wants something to take in the morning as well as at night. The patient is also willing to go for subacute rehab, but he said he will be going to [facility] instead of [facility] where he was before there for several weeks. PAST PSYCHIATRIC HISTORY: History of depression secondary to medical problems. He has been taking Remeron, Xanax, and Marinol. PAST MEDICAL HISTORY: History of atrial fibrillation, CHF, CAD, status post stents in the past, COPD, hypertension, end-stage renal disease, on dialysis. According to him, dialysis for 6 years. ALLERGIES: THE PATIENT IS ALLERGIC TO ASPIRIN. PSYCHOSOCIAL HISTORY: The patient lives with his with Alzheimer's, his daughter, and a 9-year-old grand child. 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 MEDICATIONS: The list of current medications are Colace, Cozaar, Crestor, DuoNeb, Lopressor, Eliquis, Marinol 2.5 mg b.i.d., NovoLog, PhosLo, Plavix, Protonix, Remeron 7.5 mg at bedtime. He said he is eating fairly well. The patient is on Xanax 0.25 mg at bedtime as well as Renvela and Zemplar. PHYSICAL EXAMINATION: VITAL SIGNS: Temperature is 97.5, heart rate 81, blood pressure 119/62, respirations 20, and oxygen saturation is 100%. REVIEW OF SYSTEMS: He is alert and oriented x3, but feeling anxious in his room. The patient is conversing in [employer]. He said he is worried he is going to at night, especially that he is having severe anxiety attacks, he wants some medications readjusted for anxiety. SKIN: No diaphoresis. HEENT: No headache, no dizziness. NECK: Supple. RESPIRATORY: Off and on dyspnea. CARDIOVASCULAR: No chest pain. GASTROINTESTINAL: Appetite is fair. EXTREMITIES: Gait is unsteady at times. MUSCULOSKELETAL: Feels weak. NEUROLOGIC: Oriented x3. GENITOURINARY: No dysuria. MENTAL STATUS EXAMINATION: An elderly male of Lebanese descent, conversing in [employer] with his doctor. Speech is spontaneous. Affect is reactive. Mood is depressed, anxious, and somatic. Thought process coherent. Thought content, no psychosis. No suicidal or homicidal ideation. The patient is preoccupied. He has increasing anxiety attacks at night, and is worried about if he is going to , who is going to take care of his with Alzheimer's as well as his as 9-year-old grandchild. Attention and memory seem to be fair. Insight and judgment are fair. Impulse control is fair. IMPRESSION: History of depressive disorder as well as mood disorder secondary to medical problems. PLAN AND RECOMMENDATIONS: The patient is seen, meds reviewed. We will change the Xanax to 0.5 mg b.i.d., and then I am going to change the Remeron to 15 mg at bedtime. I will try to give the Xanax 0.5 mg every 12 hours and change the Remeron to 15 mg at bedtime. So, he will sleep better and have less anxiety attacks. We may continue the Marinol 2.5 mg b.i.d. to keep his appetite. Continue dialysis as ordered. Thank you very much for the consultation. Roberth Santiago MD [facility]
[2017-12-02 07:06] LABS: HEMOGLOBIN 10.2 g/dL (12.0-18.0); MEAN CELL VOLUME 86.2 fL (80.0-94.0); MEAN CORPUSCULAR HEMOGLOBIN 28.4 pg (27.0-31.0); MEAN PLATELET VOLUME 7.9 fL (7.2-11.7); RBC 3.6 Mil/uL (4.40-5.90); RED CELL DISTRIBUTION WIDTH 19.8 % (11.5-14.5); WHITE BLOOD COUNT 4.5 K/uL (4.8-10.8)
[2017-12-02 07:25] LABS: ALB/GLOB RATIO 1.4 (1.0-2.1); CALCIUM 9.6 mg/dl (8.6-10.4)
[2017-12-02] MEDS: Albuterol-Ipratrop 3 mg / 0.5 (3 ml) UD INH PRN ×2 (07:32→13:48)
--- NOTE | 2017-12-02 07:42 | PN ---
DATE: 12/01/2017 FOLLOWUP RENAL CONSULTATION LOCATION: The patient is located in room 567. REQUESTED BY: Angelia Lau MD REASON FOR FOLLOWUP: End-stage renal disease, CHF, and for continuation of hemodialysis. SUBJECTIVE: The patient is a 77-year-old elderly very pleasant Burkinan male with a history of longstanding hypertension, diabetes, hyperlipidemia, end-stage renal disease, coronary artery disease, status post CABG, status post pacemaker placement who was admitted initially with shortness of breath and severe hyperkalemia, requiring emergency hemodialysis. The patient is not in acute distress today, resting comfortably. No chest pain. No palpitation. No nausea, vomiting, or diarrhea. PHYSICAL EXAMINATION: VITAL SIGNS: As follows: Blood pressure 127/66, pulse 80, respirations about 20, temperature 97.8, saturation 98%. Height 5 feet 5 inches and weight is 174 pounds. GENERAL: The patient is a 77-year-old very pleasant elderly [place]kin[place] male, moderately built, moderately nourished, not in acute distress. HEENT: Pupils are normally reactive to light and accommodation. Conjunctivae are pink. Sclerae are anicteric. Tongue is moist. Tracheal is midline. LUNGS: Symmetric on both sides. Bilateral breath sounds present. Bilateral basal crackles present. CVS: Hurley at the fifth intercostal space, midclavicular line. S1, S2 audible. No murmur or gallop. ABDOMEN: Normal in appearance. Soft, tympanic. No guarding. No rigidity. No hepatosplenomegaly. SPORTS INFORMATION DIRECTOR: The patient is alert, awake, and oriented x3. Nonfocal neuro examination. Cranial nerves II through XII grossly intact. Sensory and motor system are within normal limits. EXTREMITIES: No cyanosis, no clubbing, no edema. MEDICATIONS: His current medications include as follows: Colace 100 mg p.o. b.i.d, losartan 25 mg daily, Crestor 10 mg at bedtime, DuoNeb inhaler 3 mL every 6 hours p.r.n., Eliquis 5 mg p.o. b.i.d., metoprolol 12.5 mg p.o. b.i.d., Marinol 2.5 mg p.o. b.i.d., Nephro-Soo one tablet daily, PhosLo 667 mg p.o. b.i.d., Plavix 75 mg p.o. daily, Protonix 40 mg p.o. daily, Remeron 15 mg p.o. at bedtime, Renvela 2.4 gm three times a day, Xanax 0.5 mg p.o. every 12 hours, and Zemplar 2 mcg three times weekly on Friday, Friday, and Friday. LABORATORY DATA: Include as follows: Accu-Cheks 226, 230, 330, and 304. His echocardiogram as of 11/26/2017: LV function is about 43% and impression: Left ventricular systolic function is moderately to severely impaired. Ejection fracture is about 30% to 35%. There is akinesis in the mid anterolateral wall. Transmitral Doppler flow pattern is grade II pseudo normal filling dynamics. Mitral regurgitation is mild to moderate, and there is mild pulmonary hypertension. ASSESSMENT: In summary, the patient is a 77-year-old elderly Burkinan male with hypertension, diabetes, coronary artery disease, status post coronary artery bypass graft, status post pacemaker placement, hyperlipidemia, end-stage renal disease with shortness of breath, hyperkalemia, fluid overload, a very high proBNP. 1. End-stage renal disease. Continue hemodialysis three times a week. 2. Fluid overload. 3. Congestive heart failure secondary to noncompliance of the fluid intake and poor left ventricular function. 4. Diabetes, uncontrolled. 5. Hypertension. Blood pressure is within normal limits, sometimes on the low side. PLAN: Norvasc was discontinued. The patient was started on losartan 25 mg daily, titrate as tolerated. The patient underwent hemodialysis today, had ultrafiltration about 2.5 liters. Restrict fluids to 1 liter per day. We will follow with you. Thank you for allowing me to participate in your patient's care. Repeat CBC, BMP in a.m. Alyssia Melo MD
[2017-12-02] MEDS: Multivitamin Vitamin B Complex (Nephro-Vite) Tab PO SCH (08:36)
[2017-12-02] MEDS: (Novolog) Insulin Aspart, Recombinant 100 u/ml 10 ml vial SC SCH ×2 (08:36→21:36)
[2017-12-02] MEDS: Pantoprazole 40 mg EC Tab PO SCH (09:32)
--- NOTE | 2017-12-02 11:00 | CP.PCM.PN ---
Subjective - Date & Time of Evaluation Date of Evaluation: 12/02/17 Time of Evaluation: 10:57 - Subjective Subjective: Patient still weak, SOB is lesser. Had been dialyzed yesterday, and claims he had an episode of SOB last night. Seen by Dr. Santiago and given Xanax BID. Feels sleepy but anxiety is not as bad. Objective - Vital Signs/Intake and Output Vital Signs (last 24 hours): Temp Pulse Resp BP Pulse Ox 97.7 F 80 18 111/67 99 12/02/17 07:00 12/02/17 07:40 12/02/17 07:00 12/02/17 07:00 12/02/17 07:00 Intake and Output: 12/02/17 12/02/17 06:59 18:59 Intake Total 500 Balance 500 - Medications Medications: Current Medications Albuterol/Ipratropium (Duoneb 3 Mg/0.5 Mg (3 Ml) Ud) 3 ml INH RQ6 PRN PRN Reason: Shortness of Breath Last Admin: 12/02/17 07:32 Dose: 3 ml Alprazolam (Xanax) 0.5 mg PO Q12H [facility] Last Admin: 12/02/17 02:15 Dose: Not Given Apixaban (Eliquis) 5 mg PO BID [facility] Last Admin: 12/02/17 09:33 Dose: 5 mg Calcium Acetate (Phoslo) 667 mg PO BID [facility] Last Admin: 12/02/17 09:33 Dose: 667 mg Clopidogrel Bisulfate (Plavix) 75 mg PO DAILY [facility] Last Admin: 12/02/17 09:33 Dose: 75 mg Docusate Sodium (Colace) 100 mg PO BID [facility] Last Admin: 12/02/17 09:33 Dose: 100 mg Dronabinol (Marinol) 2.5 mg PO BID [facility] Last Admin: 12/02/17 09:33 Dose: 2.5 mg Insulin Aspart (Novolog) 0 unit SC ACBHS [facility] PRN Reason: Protocol Last Admin: 12/02/17 08:36 Dose: 2 units Losartan Potassium (Cozaar) 25 mg PO DAILY [facility] Last Admin: 12/02/17 09:32 Dose: 25 mg Metoprolol Tartrate (Lopressor) 12.5 mg PO BID [facility] Last Admin: 12/02/17 09:33 Dose: 12.5 mg Mirtazapine (Remeron) 15 mg PO HS [facility] Last Admin: 12/01/17 21:27 Dose: 15 mg Pantoprazole Sodium (Protonix Ec Tab) 40 mg PO DAILY [facility] Last Admin: 12/02/17 09:32 Dose: 40 mg Paricalcitol (Zemplar) 2 mcg IV MWF [facility] Last Admin: 12/01/17 10:21 Dose: 2 mcg Rosuvastatin Calcium (Crestor) 10 mg PO HS [facility] Last Admin: 12/01/17 21:27 Dose: 10 mg Sevelamer Carbonate (Renvela) 2,400 mg PO TID [facility] Last Admin: 12/02/17 09:32 Dose: 2,400 mg Vitamin B Complex/Vit C/Folic Acid (Nephro-Soo) 1 tab PO 0800 [facility] Last Admin: 12/02/17 08:36 Dose: 1 tab Zolpidem Tartrate (Ambien) 5 mg PO HS PRN PRN Reason: Insomnia - Labs Labs: 12/02/17 07:00 12/02/17 07:00 PT 14.1 SECONDS (9.7-12.2) H 11/25/17 16:20 INR 1.3 11/25/17 16:20 APTT 39 SECONDS (21-34) H 11/25/17 16:20 - Constitutional Appears: No Acute Distress, Chronically Ill - Head Exam Head Exam: ATRAUMATIC, NORMAL INSPECTION, NORMOCEPHALIC - Eye Exam Eye Exam: Normal appearance, PERRL Pupil Exam: PERRL - Neck Exam Neck Exam: Full ROM - Respiratory Exam Respiratory Exam: Decreased Breath Sounds, Rales, NORMAL BREATHING PATTERN - Cardiovascular Exam Cardiovascular Exam: Irregular Rhythm, +S1, +S2 - GI/Abdominal Exam GI & Abdominal Exam: Soft - Rectal Exam Rectal Exam: Deferred - Extremities Exam Extremities Exam: Calf Tenderness, Full ROM - Back Exam Back Exam: Full ROM - Neurological Exam Neurological Exam: Alert, Awake, Oriented x3 - Psychiatric Exam Psychiatric exam: Anxious, Depressed - Skin Skin Exam: Dry, Intact, Warm Assessment and Plan (1) Anemia in ESRD (end-stage renal disease) Status: Chronic (2) Hypertensive CKD, ESRD on dialysis Status: Chronic (3) IDDM (insulin dependent diabetes mellitus) Status: Chronic (4) Chronic congestive heart failure Status: Chronic (5) SOB (shortness of breath) Status: Acute (6) S/P CABG (coronary artery bypass graft) Status: Chronic (7) Acute on chronic systolic (congestive) heart failure Status: Acute (8) ESRD (end stage renal disease) on dialysis Status: Chronic - Assessment and Plan (Free Text) Assessment: Assessment: ESRD. CAD Acute Chf on Chronic. S/P CABG S/P Ablation for A FIb. IDDM. HTN. Anemia sec. to ESRD> Plan: Plan: Continue HD. Continue MEtoprolol, Norvasc, Cozaar Novolog coverage for now. Discharge in AM after HD
--- NOTE | 2017-12-02 11:47 | RAD ---
Date of service: 12/02/2017 HISTORY: chf COMPARISON: 11/25/2017 TECHNIQUE: Chest PA and lateral FINDINGS: LUNGS: No active pulmonary disease. PLEURA: Small left pleural effusion. No right pleural effusion. No pneumothorax. CARDIOVASCULAR: Normal heart size. Status post CABG. Permanent pacemaker. OSSEOUS STRUCTURES: No significant abnormalities. VISUALIZED UPPER ABDOMEN: Normal. OTHER FINDINGS: None. IMPRESSION: Small left pleural effusion. No evidence of pulmonary edema.
--- NOTE | 2017-12-02 11:48 | CP.PCM.PN ---
Subjective - Date & Time of Evaluation Date of Evaluation: 12/02/17 Time of Evaluation: 11:48 - Subjective Subjective: pt is seen and examined, follow up consult is dictated# [id number] Objective - Vital Signs/Intake and Output Vital Signs (last 24 hours): Temp Pulse Resp BP Pulse Ox 97.7 F 80 18 111/67 99 12/02/17 07:00 12/02/17 07:40 12/02/17 07:00 12/02/17 07:00 12/02/17 07:00 Intake and Output: 12/02/17 12/02/17 06:59 18:59 Intake Total 500 Balance 500 - Medications Medications: Current Medications Albuterol/Ipratropium (Duoneb 3 Mg/0.5 Mg (3 Ml) Ud) 3 ml INH RQ6 PRN PRN Reason: Shortness of Breath Last Admin: 12/02/17 07:32 Dose: 3 ml Alprazolam (Xanax) 0.5 mg PO Q12H [facility] Last Admin: 12/02/17 02:15 Dose: Not Given Apixaban (Eliquis) 5 mg PO BID [facility] Last Admin: 12/02/17 09:33 Dose: 5 mg Calcium Acetate (Phoslo) 667 mg PO BID [facility] Last Admin: 12/02/17 09:33 Dose: 667 mg Clopidogrel Bisulfate (Plavix) 75 mg PO DAILY [facility] Last Admin: 12/02/17 09:33 Dose: 75 mg Docusate Sodium (Colace) 100 mg PO BID [facility] Last Admin: 12/02/17 09:33 Dose: 100 mg Dronabinol (Marinol) 2.5 mg PO BID [facility] Last Admin: 12/02/17 09:33 Dose: 2.5 mg Insulin Aspart (Novolog) 0 unit SC ACBHS [facility] PRN Reason: Protocol Last Admin: 12/02/17 08:36 Dose: 2 units Losartan Potassium (Cozaar) 25 mg PO DAILY [facility] Last Admin: 12/02/17 09:32 Dose: 25 mg Metoprolol Tartrate (Lopressor) 12.5 mg PO BID [facility] Last Admin: 12/02/17 09:33 Dose: 12.5 mg Mirtazapine (Remeron) 15 mg PO HS [facility] Last Admin: 12/01/17 21:27 Dose: 15 mg Pantoprazole Sodium (Protonix Ec Tab) 40 mg PO DAILY [facility] Last Admin: 12/02/17 09:32 Dose: 40 mg Paricalcitol (Zemplar) 2 mcg IV MWF [facility] Last Admin: 12/01/17 10:21 Dose: 2 mcg Rosuvastatin Calcium (Crestor) 10 mg PO HS [facility] Last Admin: 12/01/17 21:27 Dose: 10 mg Sevelamer Carbonate (Renvela) 2,400 mg PO TID [facility] Last Admin: 12/02/17 09:32 Dose: 2,400 mg Vitamin B Complex/Vit C/Folic Acid (Nephro-Soo) 1 tab PO 0800 [facility] Last Admin: 12/02/17 08:36 Dose: 1 tab Zolpidem Tartrate (Ambien) 5 mg PO HS PRN PRN Reason: Insomnia - Labs Labs: 12/02/17 07:00 12/02/17 07:00 PT 14.1 SECONDS (9.7-12.2) H 11/25/17 16:20 INR 1.3 11/25/17 16:20 APTT 39 SECONDS (21-34) H 11/25/17 16:20
--- NOTE | 2017-12-02 14:42 | PN ---
Copied To: Roberth Santiago MD Attending MD: Roberth Santiago MD. DATE: 12/02/2017 SUBJECTIVE: The patient seen with Dr. Lau. The patient is still anxious and has trouble sleeping. His psych medication doses were readjusted yesterday. His Xanax was increased to 0.5 twice a day, and Remeron was increased to 15 mg at bedtime. We will try to give him sleeping pill, Ambien 5 mg at bedtime, as needed to help him sleep. The patient has agreed to go to [facility] for subacute rehab. The patient still worries about his medical problem. He worries that his has Alzheimer's and some other family issues. PHYSICAL EXAMINATION/REVIEW OF SYSTEMS: GENERAL: The patient is alert and oriented x2. Seen in his room. Still anxious, states that he worries about his family and cannot sleep. VITAL SIGNS: Temperature is 97.7, pulse 80, blood pressure 111/67, respirations 18, oxygen saturation 99%. SKIN: No diaphoresis. HEENT: No headache. No dizziness. NECK: Supple. RESPIRATORY: No dyspnea. CARDIOVASCULAR: No chest pain. GASTROINTESTINAL: His appetite is variable. EXTREMITIES: Gait unsteady. MUSCULOSKELETAL: Feels weak. NEUROLOGIC: Alert and oriented x3, not in any acute distress. GENITOURINARY: No dysuria. MENTAL STATUS EXAMINATION: Elderly male of [place] descent. Alert and oriented x3. Mood is dysphoric. Affect is reactive. The patient is still anxious and worried about his for Alzheimer's disease. Thought process coherent. Thought content, no psychosis. No suicidal or homicidal ideation. The patient is willing to go for subacute rehab. Attention and memory seem to be fair. Insight and judgment fair. Impulse control is fair. 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 PLAN AND RECOMMENDATIONS: The patient is seen and meds reviewed. Continue present management. We will continue Xanax 0.5 mg every 12 hours for anxiety. We will add Ambien 5 mg p.o. at bedtime p.r.n. for insomnia, continue Remeron 15 mg p.o. at bedtime for depression and mood stabilization. The patient to continue dialysis as ordered. The patient psych dennison is stable to go to [facility] for subacute rehab once bed is available. Roberth Santiago MD
--- NOTE | 2017-12-02 23:21 | CP.PCM.PN ---
Subjective - Date & Time of Evaluation Date of Evaluation: 12/02/17 Time of Evaluation: 20:00 - Subjective Subjective: Patient much less dyspneic, feels stronger. Objective - Vital Signs/Intake and Output Vital Signs (last 24 hours): Temp Pulse Resp BP Pulse Ox 97.5 F L 80 20 100/50 L 95 12/02/17 15:00 12/02/17 16:19 12/02/17 15:00 12/02/17 15:00 12/02/17 15:00 - Medications Medications: Current Medications Albuterol/Ipratropium (Duoneb 3 Mg/0.5 Mg (3 Ml) Ud) 3 ml INH RQ6 PRN PRN Reason: Shortness of Breath Last Admin: 12/02/17 13:48 Dose: 3 ml Apixaban (Eliquis) 5 mg PO BID [facility] Last Admin: 12/02/17 17:22 Dose: 5 mg Calcium Acetate (Phoslo) 667 mg PO BID [facility] Last Admin: 12/02/17 17:22 Dose: 667 mg Clopidogrel Bisulfate (Plavix) 75 mg PO DAILY [facility] Last Admin: 12/02/17 09:33 Dose: 75 mg Docusate Sodium (Colace) 100 mg PO BID [facility] Last Admin: 12/02/17 17:22 Dose: 100 mg Dronabinol (Marinol) 2.5 mg PO BID [facility] Last Admin: 12/02/17 17:22 Dose: 2.5 mg Insulin Aspart (Novolog) 0 unit SC ACBHS [facility] PRN Reason: Protocol Last Admin: 12/02/17 21:36 Dose: Not Given Lorazepam (Ativan) 0.5 mg PO Q12 PRN PRN Reason: Anxiety Losartan Potassium (Cozaar) 25 mg PO DAILY [facility] Last Admin: 12/02/17 09:32 Dose: 25 mg Metoprolol Tartrate (Lopressor) 12.5 mg PO BID [facility] Last Admin: 12/02/17 17:24 Dose: Not Given Mirtazapine (Remeron) 15 mg PO HS [facility] Last Admin: 12/02/17 21:36 Dose: Not Given Pantoprazole Sodium (Protonix Ec Tab) 40 mg PO DAILY [facility] Last Admin: 12/02/17 09:32 Dose: 40 mg Paricalcitol (Zemplar) 2 mcg IV MWF [facility] Last Admin: 12/01/17 10:21 Dose: 2 mcg Rosuvastatin Calcium (Crestor) 10 mg PO HS [facility] Last Admin: 12/02/17 21:34 Dose: 10 mg Sevelamer Carbonate (Renvela) 2,400 mg PO TID [facility] Last Admin: 12/02/17 17:22 Dose: 2,400 mg Vitamin B Complex/Vit C/Folic Acid (Nephro-Soo) 1 tab PO 0800 [facility] Last Admin: 12/02/17 08:36 Dose: 1 tab Zolpidem Tartrate (Ambien) 5 mg PO HS PRN PRN Reason: Insomnia - Labs Labs: 12/02/17 07:00 12/02/17 07:00 PT 14.1 SECONDS (9.7-12.2) H 11/25/17 16:20 INR 1.3 11/25/17 16:20 APTT 39 SECONDS (21-34) H 11/25/17 16:20 - Constitutional Appears: No Acute Distress, Chronically Ill - Eye Exam Eye Exam: Normal appearance - ENT Exam ENT Exam: Normal Exam - Neck Exam Neck Exam: Normal Inspection - Respiratory Exam Respiratory Exam: Clear to Ausculation Bilateral - Cardiovascular Exam Cardiovascular Exam: REGULAR RHYTHM, Murmur - GI/Abdominal Exam GI & Abdominal Exam: Soft, Normal Bowel Sounds - Rectal Exam Rectal Exam: Deferred - Exam Exam: NORMAL INSPECTION - Extremities Exam Extremities Exam: Normal Inspection - Back Exam Back Exam: NORMAL INSPECTION - Neurological Exam Neurological Exam: Alert, Awake, Oriented x3 - Psychiatric Exam Psychiatric exam: Anxious - Skin Skin Exam: Dry, Intact, Normal Color, Warm Assessment and Plan (1) Acute on chronic systolic (congestive) heart failure Assessment & Plan: Much improved. To continue HD and same meds. Status: Acute (2) ESRD (end stage renal disease) on dialysis Status: Chronic (3) Atrial fibrillation Status: Chronic
--- NOTE | 2017-12-03 02:43 | PN ---
Copied To: Alyssia Melo MD Attending MD: Alyssia Melo MD DATE: 12/02/2017 FOLLOWUP RENAL CONSULTATION LOCATION: The patient is located in [facility] room 567. REQUESTED BY: Angelia Lau MD REASON FOR FOLLOWUP: End-stage renal disease, CHF, for continuation of hemodialysis. 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 Underwent hemodialysis on Friday last week and receiving dialysis on Friday, Friday, and Friday for extra dialysis for fluid overload. The patient is feeling much better, not in acute distress. Denies any chest pain or palpitation. Denies any fever or cough. No abdominal pain. No nausea, vomiting, or diarrhea. PHYSICAL EXAMINATION: VITAL SIGNS: As follows this morning: Blood pressure 111/67, pulse 82, respirations 18, temperature 97.7, saturation 99%. Height 5 feet 5 inches, weight is 174 pounds. 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 HEENT: Pupils normally reactive to light and accommodation. Conjunctivae pink. Sclerae anicteric. Tongue is moist. Trachea is midline. LUNGS: Symmetric on both sides. Bilateral breath sounds present. Clear to auscultation. CVS: Lulu at the fifth intercostal space, midclavicular line. S1 and S2 audible. No murmur or gallop. ABDOMEN: Normal in appearance. Soft, tympanic. No guarding. No rigidity. No hepatosplenomegaly. SPRING COILER: The patient is alert, awake, and oriented x3. Nonfocal neuro examination. Cranial nerves II-XII grossly intact. Sensory and motor system within normal limits. EXTREMITIES: No cyanosis, no clubbing, no edema. SKIN: The patient has a midsternal scar present from the previous CABG and also pacemaker on the right side. His current medications include as follows: Ambien 5 mg at bedtime, Colace 100 mg p.o. b.i.d., Cozaar 25 mg p.o. daily, Crestor 10 mg at bedtime, DuoNeb inhaler, Eliquis 5 mg p.o. b.i.d., metoprolol 12.5 mg p.o. b.i.d., Marinol 2.5 mg p.o. b.i.d., Nephro-Soo 1 tablet daily, NovoLog for sliding scale, calcium acetate 67 mg p.o. b.i.d., Plavix 75 mg p.o. daily, Protonix 40 mg p.o. daily, Remeron 15 mg p.o. at bedtime, Renvela 2.4 g p.o. t.i.d., Xanax 0.5 mg p.o. every 12 hours, Zemplar 12 mcg 3 times a week, Friday, Friday, and Friday. His current lab data include as follows as of 12/02/2017, WBC 4.5, hemoglobin 10.2, hematocrit is 31, and platelets are 86,000. Sodium 140, potassium 4.4, chloride 96, CO2 of 29, BUN 37, creatinine 6.6, glucose 168, calcium 9.6, phosphorus 4.2, magnesium 2.1, and total bili 0.7. AST 30, ALT 36, alkaline phosphatase 121, total protein 6.9, albumin is 4. Chest x-ray as of 12/02/2017, impression: Small left pleural effusion. No evidence of pulmonary edema. ASSESSMENT AND PLAN: In summary, Cecily Haley is a 77-year-old elderly very pleasant Ethiopian male with a history of longstanding hypertension; diabetes; hyperlipidemia; end-stage renal disease, on hemodialysis three times a week; coronary artery disease, status post coronary artery bypass graft about 8 months ago and status post pacemaker placement about a year ago with poor left ventricular function, ejection fraction about 30-40%, was admitted with shortness of breath and hyperkalemia. The patient underwent hemodialysis last week on Friday, Friday, Friday and Friday and again hemodialysis yesterday. 1. End-stage renal disease. Continue hemodialysis three times a week, Friday, Friday, and Friday. 2. Status post congestive heart failure. 3. Status post hyperkalemia, potassium is within normal limits. 4. Diabetes. 5. Poor left ventricular function secondary to coronary artery disease. Continue hemodialysis in the morning. We will follow with you. Thank you for allowing me to participate in your patient's care. Alyssia Melo MD
[2017-12-03 08:03] LABS: BASO % 0.7 % (0.0-2.0); EOS # 0.3 K/uL (0.0-0.7); EOS % 6.3 % (0.0-4.0); HEMOGLOBIN 10.2 g/dL (12.0-18.0); LYMPH # 0.9 K/uL (1.0-4.3); LYMPH % 19.3 % (20.0-40.0); MEAN CORPUSCULAR HEMOGLOBIN 28.4 pg (27.0-31.0); MEAN PLATELET VOLUME 8.3 fL (7.2-11.7); MONO # 0.5 K/uL (0.0-0.8); MONO % 9.6 % (0.0-10.0); NEUT # 3.1 K/uL (1.8-7.0); NEUT % 64.1 % (50.0-75.0); RBC 3.61 Mil/uL (4.40-5.90); RED CELL DISTRIBUTION WIDTH 19.3 % (11.5-14.5); WHITE BLOOD COUNT 4.8 K/uL (4.8-10.8)
[2017-12-03] MEDS: (Novolog) Insulin Aspart, Recombinant 100 u/ml 10 ml vial SC SCH (08:42)
[2017-12-03] MEDS: Multivitamin Vitamin B Complex (Nephro-Vite) Tab PO SCH (08:43)
[2017-12-03 09:05] LABS: ALB/GLOB RATIO 1.4 (1.0-2.1); ALBUMIN 3.9 g/dL (3.5-5.0); CALCIUM 9.6 mg/dl (8.6-10.4)
[2017-12-03] MEDS: Paricalcitol 2 mcg/ml Inj IV SCH (10:03)
[2017-12-03 10:31] VITALS: O2SAT 100
[2017-12-03] MEDS: Pantoprazole 40 mg EC Tab PO SCH ×2 (10:32→13:51)
--- NOTE | 2017-12-03 11:18 | CP.PCM.DIS ---
Provider - Provider Date of Admission: 11/26/17 10:56 Attending physician: Angelia Lau MD Time Spent in preparation of Discharge (in minutes): 80 Diagnosis - Discharge Diagnosis (1) Anemia in ESRD (end-stage renal disease) Status: Chronic (2) Hypertensive CKD, ESRD on dialysis Status: Chronic (3) IDDM (insulin dependent diabetes mellitus) Status: Chronic Priority: High (4) Chronic congestive heart failure Status: Acute Priority: High (5) SOB (shortness of breath) Status: Acute Priority: High (6) S/P CABG (coronary artery bypass graft) Status: Chronic Priority: High (7) Acute on chronic systolic (congestive) heart failure Status: Acute Priority: High (8) ESRD (end stage renal disease) on dialysis Status: Chronic Priority: High (9) Acute on chronic systolic heart failure Status: Acute Priority: High (10) Atrial fibrillation Status: Chronic Priority: High Hospital Course - Lab Results Lab Results: Most Recent Lab Values WBC 4.8 K/uL (4.8-10.8) 12/03/17 07:48 RBC 3.61 Mil/uL (4.40-5.90) L 12/03/17 07:48 Hgb 10.2 g/dL (12.0-18.0) L 12/03/17 07:48 Hct 31.0 % (35.0-51.0) L 12/03/17 07:48 MCV 86.0 fL (80.0-94.0) 12/03/17 07:48 MCH 28.4 pg (27.0-31.0) 12/03/17 07:48 MCHC 33.0 g/dL (33.0-37.0) 12/03/17 07:48 RDW 19.3 % (11.5-14.5) H 12/03/17 07:48 Plt Count 82 K/uL (130-400) L 12/03/17 07:48 MPV 8.3 fL (7.2-11.7) 12/03/17 07:48 Neut % (Auto) 64.1 % (50.0-75.0) 12/03/17 07:48 Lymph % (Auto) 19.3 % (20.0-40.0) L 12/03/17 07:48 [place] % (Auto) 9.6 % (0.0-10.0) 12/03/17 07:48 Eos % (Auto) 6.3 % (0.0-4.0) H 12/03/17 07:48 Baso % (Auto) 0.7 % (0.0-2.0) 12/03/17 07:48 Neut # (Auto) 3.1 K/uL (1.8-7.0) 12/03/17 07:48 Lymph # (Auto) 0.9 K/uL (1.0-4.3) L 12/03/17 07:48 [place] # (Auto) 0.5 K/uL (0.0-0.8) 12/03/17 07:48 Eos # (Auto) 0.3 K/uL (0.0-0.7) 12/03/17 07:48 Baso # (Auto) 0.0 K/uL (0.0-0.2) 12/03/17 07:48 Differential Comment 11/25/17 15:29 PT 14.1 SECONDS (9.7-12.2) H 11/25/17 16:20 INR 1.3 11/25/17 16:20 APTT 39 SECONDS (21-34) H 11/25/17 16:20 D-Dimer, Quantitative 225 ng/mlDDU (0-243) 11/25/17 16:20 Sodium 137 mmol/L (132-148) 12/03/17 07:48 Potassium 4.8 mmol/L (3.6-5.2) 12/03/17 07:48 Chloride 95 mmol/L (98-107) L 12/03/17 07:48 Carbon Dioxide 24 mmol/L (22-30) 12/03/17 07:48 Anion Gap 23 (10-20) H 12/03/17 07:48 BUN 50 mg/dL (9-20) H 12/03/17 07:48 Creatinine 8.6 mg/dL (0.8-1.5) H* D 12/03/17 07:48 Est GFR ( Amer) 7 12/03/17 07:48 Est GFR (Non-Af Amer) 6 12/03/17 07:48 POC Glucose (mg/dL) 200 mg/dL (65-110) H 12/03/17 06:15 Random Glucose 200 mg/dL (75-110) H 12/03/17 07:48 Hemoglobin A1c 6.6 % (4.2-6.5) H 11/29/17 07:53 Calcium 9.6 mg/dl (8.6-10.4) 12/03/17 07:48 Phosphorus 4.0 mg/dL (2.5-4.5) 12/03/17 07:48 Magnesium 2.1 mg/dL (1.6-2.3) 12/03/17 07:48 Total Bilirubin 0.6 mg/dL (0.2-1.3) 12/03/17 07:48 AST 34 U/L (17-59) 12/03/17 07:48 ALT 32 U/L (21-72) 12/03/17 07:48 Alkaline Phosphatase 131 U/L (38-126) H 12/03/17 07:48 Troponin I 0.1030 ng/mL (0.00-0.120) 11/25/17 15:29 NT-Pro-B Natriuret Pep 350659 pg/mL (0-900) H 12/03/17 07:48 Total Protein 6.8 g/dL (6.3-8.3) 12/03/17 07:48 Albumin 3.9 g/dL (3.5-5.0) 12/03/17 07:48 Globulin 2.8 gm/dL (2.2-3.9) 12/03/17 07:48 Albumin/Globulin Ratio 1.4 (1.0-2.1) 12/03/17 07:48 Free T4 1.57 ng/dL (0.78-2.19) 11/29/17 07:53 TSH 3rd Generation 1.40 mIU/L (0.46-4.68) 11/29/17 07:53 - Hospital Course Hospital Course: Admitted this 77 years old male because of increasing SOB. Known case of Systolic congestive heart failure, S/P CABG., Atrial fibrillation S/P ablation, IDDM, ESRD on HD, Permanent pacemaker. Patient claims his breathing is becoming very labored so he went to the ER. and was adimtted. Patient had extra sessions of HD and SOB subsequently bnecame better. His medications were adjusted by Dr. Prema to raise the BP higher to ensure that dialysis could be performed to eliminate the fluids. Chest X-ray on discharge shows no CHF. Heart size was better.. Only slight left pleural effusion was seen. Bp. was at 110 and above. patient was able to sleep better under the supervision of Dr. Santiago. Patient to be dischhareged to the [facility] for rehab. Discharge Exam - Head Exam Head Exam: ATRAUMATIC, NORMAL INSPECTION, NORMOCEPHALIC - Eye Exam Eye Exam: Normal appearance Pupil Exam: PERRL - ENT Exam ENT Exam: Normal External Ear Exam - Neck Exam Neck exam: Full Rom - Respiratory Exam Respiratory Exam: Rales, NORMAL BREATHING PATTERN - Cardiovascular Exam Cardiovascular Exam: Irregular Rhythm, +S1, +S2 - Rectal Exam Rectal Exam: Deferred - Extremities Exam Extremities exam: full ROM - Back Exam Back exam: FULL ROM - Neurological Exam Neurological exam: Alert, Oriented x3 - Psychiatric Exam Psychiatric exam: Anxious, Depressed - Skin Skin Exam: Dry, Intact, Warm Discharge Plan - Follow Up Plan Condition: FAIR Disposition: REHAB FACILITY/REHAB UNIT Patient education suggested?: No Instructions: Atrial Fibrillation (DC), Heart Failure, Adult (DC), Diabetes Type 2 (DC), Dialysis and Diet, Heart Failure (DC), Heart Failure (GEN), Pacemaker (DC), Pacemaker (GEN), Pulmonary Edema (DC), Pulmonary Edema (GEN), Ascites (DC), Ascites (GEN), Renal Failure Diet (DC), Kidney Failure, Heart Failure, Adult, Anemia of Chronic Disease, Shortness of Breath (Dyspnea) (DC), Heart Failure and Atrial Fibrillation, Shortness of Breath (Dyspnea) Additional Instructions: PLACE UNDER THE SERVICE OF DR LAU AT [facility] ----CALL FOR ADMITTING ORDER CONTINUE HOME MEDICATION NEW PRESCRIPTION GIVEN AMBIEN 5 MG PO AT HS ATIVAN 0.5 MG PO PRN Q12H LOSARTAN 25 MG PO DAILY STOP NORVASC DOSE CHANGE ELIQUIS INCREASE 5 MG PO FROM 2.5 MG BID METOPROLOL DECREASE TO 12.5 MG FROM 25 MG PO BID REMERON INCREASE TO 15 MG PO AT HS FROM 7.5 MG ACTIVITY TOLERATED AND FACILITY PROTOCOL CALL DR PALAFOX FOR FURTHER ORDER Referrals: Alyssia Melo MD [Staff Provider] - Angelia Lau MD [Staff Provider] - Rajeev Lloyd MD [Staff Provider] -
[2017-12-03 13:05] VITALS: RESP 18
[2017-12-03 15:40] VITALS: BP 113/60; PULSE 83; TEMP 98
--- NOTE | 2017-12-03 17:53 | PN ---
Copied To: Roberth Santiago MD Attending MD: Roberth Santiago MD DATE: 12/03/2017 SUBJECTIVE: The patient seen in dialysis room. He is sleepy, but arousable, and complaining of anxiety. His meds were changed yesterday as per request of the family. We discontinued the Xanax and put the patient on Ativan 0.5 mg every 12 hours p.r.n. The patient is on Marinol 2.5 mg b.i.d. to improve his appetite and then also the patient is on Ambien 5 mg at bedtime. The patient last night did not get the Ambien or the Ativan and just on Remeron. The family was earlier requesting to have the Remeron increased to 30, but the patient may have problems with his blood pressure with the increased dose of Remeron. For now, the patient is receiving dialysis and will be discharged today to [facility] for subacute rehab once his dialysis is over. PHYSICAL EXAMINATION: VITAL SIGNS: Temperature is 97.4, 90, blood pressure 121/69, respiration is 20, oxygen sat is 100%. REVIEW OF SYSTEMS: CONSTITUTIONAL: The patient is seen in the dialysis room, sleepy, but arousable, not in acute respiratory distress, cooperative. SKIN: No diaphoresis. HEENT: No headache. No dizziness. NECK: Supple. RESPIRATORY: No dyspnea. CARDIOVASCULAR: No chest pain. GASTROINTESTINAL: No nausea. No vomiting. EXTREMITIES: Complaining of pain. No tremors. Gait is unsteady at times. MUSCULOSKELETAL: Feels weak. NEUROLOGIC: Alert and oriented x3. GENITOURINARY: No urinary problems or dysuria. 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 Mood is less anxious and somatic. Affect is reactive. Speech is spontaneous. Thought process coherent. Thought content, no psychosis. No suicidal or homicidal ideation. The patient is still worried about his family, especially his who has Alzheimer's and also his grandchild. Attention and memory seems to be fair. Insight and judgment fair. Impulse control is fair. IMPRESSION: Depressive disorder, not otherwise specified. 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 PLAN AND RECOMMENDATION: The patient is seen and meds reviewed. Continue Remeron 15 mg at bedtime as well as the Ativan 0.5 mg p.o. every 12 hours p.r.n. and the Ambien 5 mg at bedtime p.r.n. There is no need to add more medication. The patient is psych dennison stable to go to [facility] for subacute rehab for reconditioning before going home. Roberth Santiago MD
--- NOTE | 2017-12-03 20:31 | CP.PCM.PN ---
Subjective - Date & Time of Evaluation Date of Evaluation: 12/03/17 Time of Evaluation: 13:05 - Subjective Subjective: pt is seen and examined, follow up consult is dictated #[id number] s/p hd today, had a uf 2.2 lit for possible d/c to [facility] today Objective - Vital Signs/Intake and Output Vital Signs (last 24 hours): Temp Pulse Resp BP Pulse Ox 98.0 F 83 18 113/60 100 12/03/17 15:00 12/03/17 15:00 12/03/17 15:00 12/03/17 15:00 12/03/17 15:00 Intake and Output: 12/03/17 12/04/17 18:59 06:59 Intake Total 360 Balance 360 - Labs Labs: 12/03/17 07:48 12/03/17 07:48 PT 14.1 SECONDS (9.7-12.2) H 11/25/17 16:20 INR 1.3 11/25/17 16:20 APTT 39 SECONDS (21-34) H 11/25/17 16:20
--- NOTE | 2017-12-04 04:45 | PN ---
Copied To: Alyssia Melo MD Attending MD: Alyssia Melo MD DATE: 12/03/[address] Angelia Lau MD REASON FOR FOLLOWUP: End-stage renal disease, continuation of hemodialysis. 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 The patient received hemodialysis last week, Friday, Friday, Friday, and Friday, two extra hemodialyses. The patient is feeling much better, not in distress. The patient just completed hemodialysis, had ultrafiltration of about 2.2 liters. No chest pain. No palpitation. No fever. No cough. No abdominal pain. No nausea, vomiting, diarrhea. PHYSICAL EXAMINATION: VITAL SIGNS: This afternoon as follows: Blood pressure 133/64, pulse 79, respirations 18, temperature 97.2, saturation 100%. Height 5 feet 5 inches, weight is 174 pounds. 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 HEENT: Pupils are normal and reactive to light and accommodation. Conjunctivae pink. Sclerae anicteric. Tongue is moist and trachea is midline. LUNGS: Symmetrical on both sides. Bilateral breath sounds present. Clear to auscultation. CVS: [place] at the fifth intercostal space, midclavicular area. S1 and S2 audible. No murmur or gallop. ABDOMEN: Normal in appearance, soft, tympanic. No guarding. No rigidity. No hepatosplenomegaly. NON DESTRUCTIVE EVALUATION MANAGER: The patient is alert, awake, and oriented x3. Nonfocal neuro examination. Cranial nerves II-XII grossly intact. Sensory and motor system is within normal limits. EXTREMITIES: No cyanosis, no clubbing, no edema. CURRENT MEDICATIONS: Include as follows: Ambien 5 mg at bedtime, Ativan 0.5 mg p.o. every 12 hours p.r.n., Colace 100 mg p.o. b.i.d., Cozaar 25 mg p.o. daily, Crestor 10 mg at bedtime, DuoNeb inhaler, Eliquis 5 mg p.o. b.i.d., Lopressor 12.5 mg b.i.d., Marinol 2.5 mg p.o. b.i.d., Nephro-Soo 1 tablet daily, NovoLog insulin per sliding scale, calcium acetate, PhosLo 667 mg p.o. b.i.d., Plavix 75 mg daily, Protonix 40 mg p.o. daily, Renvela 2.4 g p.o. t.i.d., Zemplar 2 mcg three times a week. LABORATORY DATA: Include as follows: As of 12/03/2017, WBC 4.8, hemoglobin 10.3, hematocrit is 31, platelets 82. Sodium 137, potassium 4.8, chloride 95, CO2 of 24, BUN 50, creatinine 8.6, glucose 200, calcium 9.6, phosphorus 4.0, magnesium 2.1, total bili 0.6, AST 34, ALT 32, alkaline phosphatase 131, proBNP 107,000, total protein 6.8, albumin is 3.9. 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 1. End-stage renal disease. Continue hemodialysis three times a week, Friday, Friday, and Friday. The patient underwent hemodialysis today, had ultrafiltration of about 2.2 liters, tolerated very well. 2. Hypertension. Blood pressure is stable. Continue Cozaar and metoprolol. 3. CHF secondary to multifactorial, secondary to poor LV function and also noncompliance with fluid intake. Advised to watch diet and low sodium, low potassium diet and restrict fluids to 1 liter per day. The patient is scheduled for possible transfer to subacute rehab in [place]. We will follow with you. Thank you for allowing me to participate in your patient's care. Continue hemodialysis at outpatient hemodialysis unit in [facility]. Vasudeva Jonnalagadda, MD [facility] # [id number]
--- NOTE | 2017-12-04 21:34 | CARD ---
APPROVED REPORT Date of service: 12/02/2017 EKG Measurement Heart [id number] <Conclusion> Atrial-sensed ventricular-paced rhythm with prolonged AV conduction Abnormal ECG
== END 2017-12-03 16:36 | DRG 291 ==
LOC: C.ER 14:14 → C.9E 16:26 → C.6T 19:22 → OBSVTOIN 11-26 10:56 → C.5S 11-27 15:16
PROVIDERS: ADMIT Legal Medicine; ATTEND Legal Medicine
PROC: 5A1D70Z Performance of Urinary Filtration, Intermittent, Less than 6 Hours Per Day (ICD-10-PCS; principal; 2017-11-26)
DX: I13.2 Hypertensive heart and chronic kidney disease with heart failure and with stage 5 chronic kidney disease, or end stage renal disease (principal); N18.6 End stage renal disease; I50.23 Acute on chronic systolic (congestive) heart failure; N25.81 Secondary hyperparathyroidism of renal origin; D63.1 Anemia in chronic kidney disease; E10.22 Type 1 diabetes mellitus with diabetic chronic kidney disease; E10.65 Type 1 diabetes mellitus with hyperglycemia; Z99.2 Dependence on renal dialysis; E78.5 Hyperlipidemia, unspecified; E87.5 Hyperkalemia; F32.9 Major depressive disorder, single episode, unspecified; I25.10 Atherosclerotic heart disease of native coronary artery without angina pectoris; I25.5 Ischemic cardiomyopathy; I48.91 Unspecified atrial fibrillation; J44.9 Chronic obstructive pulmonary disease, unspecified; Z91.11 Patient's noncompliance with dietary regimen; I27.20 Pulmonary hypertension, unspecified; Z87.891 Personal history of nicotine dependence; Z95.1 Presence of aortocoronary bypass graft; Z88.6 Allergy status to analgesic agent